=== PATIENT | male | born 1955 ===

== ENCOUNTER 2020-05-15 14:15 | Outpatient (REF) | payer MEDICARE, MEDICAID, SELFPAY ==
--- NOTE | 2020-05-15 15:15 | XR_ITS ---
EXAMINATION: 1. CHEST. 2. ABDOMEN. CLINICAL INFORMATION: M54.9 - Dorsalgia, unspecified COMPARISON: Chest x-ray 01/14/2020 TECHNIQUE: 1. Chest. 2 views 2. Abdomen. Supine frontal view FINDINGS: 1. Chest. Lungs are clear. No pulmonary vascular congestion. There is no pleural effusion. The heart size is normal. The cardiac and mediastinal contours are normal. There are calcifications of the thoracic aorta. There are multilevel degenerative changes of dorsal spine. 2. Abdomen. Small volume of bowel gas present. The abdomen is almost gasless. No dilated bowel loops evident. No radiopaque urinary calculus. There is moderate degenerative spondylosis of lower spine. IMPRESSION: 1. Chest. No acute change. 2. Abdomen. No acute abnormality.
== END 2020-05-15 14:16 | disposition home or self-care (01) ==
LOC: HO.XRAY 14:15
PROVIDERS: PCP Pediatrics; Referring Provider Pediatrics; Visit Provider Hospitalist
DX: G47.33 Obstructive sleep apnea (adult) (pediatric) (principal); M79.89 Other specified soft tissue disorders; R09.89 Other specified symptoms and signs involving the circulatory and respiratory systems; J44.9 Chronic obstructive pulmonary disease, unspecified; M54.9 Dorsalgia, unspecified
CPT/HCPCS: 71046; 74019; 99214

== ENCOUNTER → 2020-07-14 10:53 | Outpatient (BNVA) | payer MEDICARE, MEDICAID, SELFPAY | PROVIDERS: PCP Pediatrics; Visit Provider Surgery | DX: S80.11XA Contusion of right lower leg, initial encounter (principal) | CPT/HCPCS: 99202 ==

== ENCOUNTER 2020-07-14 11:47 | Emergency (ER) | payer MEDICARE, MEDICAID, SELFPAY ==
[2020-07-14 12:14] VITALS: BP 155/82; PULSE 85; RESP 18; TEMP 36.7; O2SAT 97; BMI 56.3
--- NOTE | 2020-07-14 12:44 | XR_ITS ---
EXAMINATION: XR HIP, LEFT CLINICAL INFORMATION: Pain status post fall COMPARISON: None TECHNIQUE: Two views of the left hip. Frontal view of the pelvis. FINDINGS: No fracture or dislocation. The left hip is well aligned. Joint space is mildly narrowed with subchondral sclerosis present. Mild narrowing at the right hip joint space as well. The pelvic rim is intact. Sacroiliac joints and pubic symphysis are intact. The bowel gas pattern is unremarkable. XR/XR hip LT w PEL1V IMPRESSION: No fracture or malalignment. Mild degenerative changes of the hips.
--- NOTE | 2020-07-14 12:44 | XR_ITS ---
EXAMINATION: XR ELBOW, RIGHT CLINICAL INFORMATION: Pain status post fall. COMPARISON: None TECHNIQUE: AP, lateral, and oblique views of the right elbow. FINDINGS: There is prominent soft tissue swelling overlying the medial aspect of the elbow, particularly at the dorsal aspect. There is focal cortical irregularity of the medial humeral epicondyle seen on one view only. This could represent a nondisplaced fracture versus chronic change. Alignment at the elbow is maintained. No additional evidence of fracture. No elbow joint effusion. XR/XR elbow RT min 3V IMPRESSION: Prominent soft tissue swelling overlying the dorsal medial aspect of the elbow. Focal cortical irregularity along the medial humeral epicondyle which could represent an acute nondisplaced fracture or chronic change. There is no elbow joint effusion. If clinically indicated, CT could be performed to verify.
--- NOTE | 2020-07-14 12:44 | XR_ITS ---
EXAMINATION: XR TIBIA AND FIBULA, RIGHT CLINICAL INFORMATION: Pain status post fall COMPARISON: None TECHNIQUE: AP and lateral views of the right tibia and fibula were obtained. FINDINGS: No fracture or cortical disruption. Appropriate alignment of the knee and ankle. No joint effusion at the knee. Diffuse soft tissue swelling is noted. Achilles heel spur. XR/XR tibia fibula RT 2V IMPRESSION: Diffuse soft tissue swelling. No fracture or malalignment.
[2020-07-14] MEDS: Acetaminophen 325 MG TABLET 975 MG PO (12:50)
--- NOTE | 2020-07-14 13:03 | ED.FALL ---
HPI - Fall General Chief Complaint: Fall Stated Complaint: Fall Time Seen by Provider: 07/14/20 12:44 Source: patient Mode of arrival: other ( Wheelchair) Limitations: no limitations History of Present Illness HPI Narrative: 64-year-old male below noted past medical history presenting with complaint of mechanical fall. Reports he was walking out of the hospital after his routine appointment with General surgery for a wound check of his right lower extremity things are going well however he was going up 3 steps and the 1st step he did not see and tripped on that falling forward hitting his right elbow on the hand rail and right davis area on the step. States he has some mild pain in the left hip area and pain at the right anterior tib fib/right elbow. He denies any head or neck injury. Denies any other complaints today. Related Data Home Medications Medication Instructions Recorded Confirmed allopurinol 300 mg tablet 300 mg PO DAILY 05/15/20 07/14/20 amlodipine 10 mg tablet 10 mg PO DAILY 05/15/20 07/14/20 cetirizine 10 mg tablet 10 mg PO DAILY 05/15/20 07/14/20 chlorthalidone 25 mg tablet 25 mg PO DAILY 05/15/20 07/14/20 clotrimazole 1 % topical solution OTIC (EARS) 05/15/20 07/14/20 fluticasone propionate 220 2 puff INHALATION BID 05/15/20 07/14/20 mcg/actuation HFA aerosol inhaler fluticasone propionate 50 INTRANASAL 05/15/20 07/14/20 mcg/actuation nasal spray,suspension gabapentin 300 mg capsule 300 mg PO TID 05/15/20 07/14/20 ipratropium 20 mcg-albuterol 100 1 puff INHALATION QID 05/15/20 07/14/20 mcg/actuation mist for inhalation melatonin 5 mg tablet 5 mg PO BEDTIME 05/15/20 07/14/20 metoprolol succinate 100 mg 100 mg PO DAILY 05/15/20 07/14/20 tablet,extended release 24 hr nystatin 100,000 unit/gram topical TOPICAL BID 05/15/20 07/14/20 cream roflumilast 250 mcg tablet 250 mcg PO DAILY 05/15/20 07/14/20 umeclidinium 62.5 mcg-vilanterol INHALATION 05/15/20 07/14/20 25 mcg/actuation powdr for inhalation Allergies Allergy/AdvReac Type Severity Reaction Status Date / Time cephalexin [Keflex] Allergy Mild rash Verified 05/15/20 14:48 Review of Systems Review of Systems: Yes all other systems are reviewed and are negative [facility] Past Medical History Medical History (Updated 07/14/20 @ 14:49 by Ron Mckee NP) Back pain Bibasilar crackles COPD (chronic obstructive pulmonary disease) Limb swelling Surgical History History of skin graft Family History Family History (Updated 07/14/20 @ 11:08 by LAN Peck) Sister History of breast cancer Social History Social History (Updated 05/15/20 @ 14:38 by Airam Liu MA) Alcohol intake: never Smoking Status: Former smoker Years Smoked: 7 years Smoked in Last 30 Days: No Use of substances other than those prescribed or required for medical reasons: No Advance Directives: No Advance Directives Information Provided: Yes Physical Exam Vital Signs: Vital Signs: Last Vital Signs Temp 98.1 F 07/14/20 12:14 Pulse 85 07/14/20 12:14 Resp 18 07/14/20 12:14 BP 155/82 H 07/14/20 12:14 Pulse Ox 97 07/14/20 12:14 Body Mass Index 56.3 Reviewed Const: General: cooperative and healthy appearing; No acute distress or intoxicated appearing Nutritional Appearance: average body habitus Orientation/consciousness: patient oriented x3 HENMT: Head: Yes normal to inspection Ears: hearing grossly normal bilaterally Eyes: General: appearance normal, both eyes and all related structures Visual Saez: normal visual saez by confrontation Neck: Neck: Yes normal visual inspection, No positive Brudzinski's sign, No positive Kernig's sign and No tender Thyroid: Thyroid normal Chest: Chest palpation & inspection: normal inspection of the chest Resp: Effort & Inspection: normal respiratory effort Cardio: Jugular venous distension: no JVD GI: Inspection: Yes normal to inspection Percussion: Yes normal to percussion Auscultation: normal bowel sounds : General: Yes no CVA tenderness Back/Spine/Pelvis: Back: no CVA tenderness Skin: General skin exam: no rashes or lesions noted Neuro: General: patient oriented x3 Extrem: General: Yes normal to inspection MDM - Fall MDM Narrative Medical decision making narrative: has full range of motion in the elbow without pain some soft tissue swelling where there is a soft tissue hematoma just distal to the elbow. No tender palpation over the elbow anatomy. I do not suspect a fracture at this time given Jimmie wrap will instruct if continues to bother him and get outpatient CT/further evaluation is agreeable. Stable for discharge. Medical Records Attestation: I reviewed the patient's medical records. Lab Data Attestation: I reviewed the patient's lab results. Imaging Data Tibbia/Fibula : Radiologist's impression: Carson Andujar 64 M [address] [address] XRay Report Signed Patient: Carson AndujarMR#: [id number] : 1955cct:[id number] Age/Sex: 64 / MADM Date: 07/14/20 Loc: HO.ED Attending Dr: Ordering Physician: Ron Mckee NP Date of Service: 07/14/20 Procedure(s): XR tibia fibula RT 2V Accession Number(s): [id number] cc: Ron Mckee SOFTWARE SALES REPRESENTATIVE~ EXAMINATION: XR TIBIA AND FIBULA, RIGHT CLINICAL INFORMATION: Pain status post fall COMPARISON: None TECHNIQUE: AP and lateral views of the right tibia and fibula were obtained. FINDINGS: No fracture or cortical disruption. Appropriate alignment of the knee and ankle. No joint effusion at the knee. Diffuse soft tissue swelling is noted. Achilles heel spur. XR/XR tibia fibula RT 2V IMPRESSION: Diffuse soft tissue swelling. No fracture or malalignment. Dictated By:RUBI HENDERSON MD Signed By:<Electronically signed by RUBI HENDERSON MD in OV>07/14/20 1417 DD/ 1244 TD/TT: [employer]: [place] left hip/pelvis: Radiologist's impression: [address] [address] XRay Report Signed Patient: Terrance Andujar#: [id number] : 6Acct:[id number] Age/Sex: 64 / MADM Date: 07/14/20 Loc: HO.ED Attending Dr: Ordering Physician: Ron Mckee NP Date of Service: 07/14/20 Procedure(s): XR hip LT w PEL1V Accession Number(s): [id number] cc: Ron Mckee SOFTWARE SALES REPRESENTATIVE~ EXAMINATION: XR HIP, LEFT CLINICAL INFORMATION: Pain status post fall COMPARISON: None TECHNIQUE: Two views of the left hip. Frontal view of the pelvis. FINDINGS: No fracture or dislocation. The left hip is well aligned. Joint space is mildly narrowed with subchondral sclerosis present. Mild narrowing at the right hip joint space as well. The pelvic rim is intact. Sacroiliac joints and pubic symphysis are intact. The bowel gas pattern is unremarkable. XR/XR hip LT w PEL1V IMPRESSION: No fracture or malalignment. Mild degenerative changes of the hips. Dictated By:RUBI HENDERSON MD Signed By:<Electronically signed by RUBI HENDERSON MD in OV>07/14/20 1416 DD/ 1244 TD/TT: [employer]: [place] Right Elbow : Radiologist's impression: Carson Andujar 64 M 1955 [place] [address] XRay Report Signed Patient: Carson AndujarMR#: [id number] : 6Acct:[id number] Age/Sex: 64 / MADM Date: 07/14/20 Loc: HO.ED Attending Dr: Ordering Physician: Ron Mckee NP Date of Service: 07/14/20 Procedure(s): XR elbow RT min 3V Accession Number(s): [id number] cc: Rno Mckee SOFTWARE SALES REPRESENTATIVE~ EXAMINATION: XR ELBOW, RIGHT CLINICAL INFORMATION: Pain status post fall. COMPARISON: None TECHNIQUE: AP, lateral, and oblique views of the right elbow. FINDINGS: There is prominent soft tissue swelling overlying the medial aspect of the elbow, particularly at the dorsal aspect. There is focal cortical irregularity of the medial humeral epicondyle seen on one view only. This could represent a nondisplaced fracture versus chronic change. Alignment at the elbow is maintained. No additional evidence of fracture. No elbow joint effusion. XR/XR elbow RT min 3V IMPRESSION: Prominent soft tissue swelling overlying the dorsal medial aspect of the elbow. Focal cortical irregularity along the medial humeral epicondyle which could represent an acute nondisplaced fracture or chronic change. There is no elbow joint effusion. If clinically indicated, CT could be performed to verify. Dictated By:RUBI HENDERSON MD Signed By:<Electronically signed by RUBI HENDERSON MD in OV>07/14/20 1355 DD/ 1244 TD/TT: [employer]: [place] Discharge Plan Discharge Clinical Impression: Fall, Contusion Patient Disposition: Home, Self-Care Instructions: Contusion in Adults (ED) Prescriptions: No Action fluticasone propionate 50 mcg/actuation spray,suspension intranasal RF: 0 Flovent HFA 220 mcg/actuation HFA aerosol inhaler 2 puff inhalation BID RF: 0 allopurinol 300 mg tablet 300 mg PO DAILY RF: 0 amlodipine 10 mg tablet 10 mg PO DAILY RF: 0 metoprolol succinate 100 mg tablet extended release 24 hr 100 mg PO DAILY RF: 0 cetirizine 10 mg tablet 10 mg PO DAILY RF: 0 melatonin 5 mg tablet 5 mg PO BEDTIME RF: 0 Anoro Ellipta 62.5-25 mcg/actuation blister with device inhalation RF: 0 gabapentin 300 mg capsule 300 mg PO TID RF: 0 Combivent Respimat 20-100 mcg/actuation mist 1 puff inhalation QID RF: 0 Daliresp 250 mcg tablet 250 mcg PO DAILY RF: 0 chlorthalidone 25 mg tablet 25 mg PO DAILY RF: 0 clotrimazole 1 % solution otic (ears) RF: 0 nystatin 100,000 unit/gram cream topical BID RF: 0 Referrals: Keturah Ramos MD [Primary Care Provider] - 1 week
--- NOTE | 2020-07-14 13:47 | PC.NURSE ---
pt ambulated to bathroom 40ft and back to room without any difficulty. moving all extremities, no facial grimacing noted.
== END 2020-07-14 15:19 | disposition home or self-care (01) ==
PROVIDERS: Emergency Provider Emergency Medicine; PCP Pediatrics
DX: S50.01XA Contusion of right elbow, initial encounter (principal); M79.601 Pain in right arm; M25.552 Pain in left hip; W01.0XXA Fall on same level from slipping, tripping and stumbling without subsequent striking against object, initial encounter; Y93.01 Activity, walking, marching and hiking; Y92.9 Unspecified place or not applicable; Y99.9 Unspecified external cause status; Z87.891 Personal history of nicotine dependence; Z79.899 Other long term (current) drug therapy
CPT/HCPCS: 73080; 73502; 73590; 99283

== ENCOUNTER → 2020-07-21 13:22 | Outpatient (BNVA) | payer MEDICARE, MEDICAID, SELFPAY | PROVIDERS: PCP Pediatrics; Visit Provider Surgery | DX: S80.11XA Contusion of right lower leg, initial encounter (principal); W10.9XXA Fall (on) (from) unspecified stairs and steps, initial encounter; Y93.9 Activity, unspecified; Y92.9 Unspecified place or not applicable; Y99.9 Unspecified external cause status; Z79.899 Other long term (current) drug therapy; Z87.891 Personal history of nicotine dependence | CPT/HCPCS: 99212 ==

== ENCOUNTER → 2020-08-04 15:28 | Outpatient (BNVA) | payer MEDICARE, MEDICAID, SELFPAY | PROVIDERS: PCP Pediatrics; Visit Provider Surgery | DX: S80.11XA Contusion of right lower leg, initial encounter (principal) | CPT/HCPCS: 10140; 99212 ==

== ENCOUNTER → 2020-08-12 14:17 | Outpatient (BNVA) | payer MEDICARE, MEDICAID, SELFPAY | PROVIDERS: PCP Pediatrics; Visit Provider Surgery | DX: S80.11XA Contusion of right lower leg, initial encounter (principal) | CPT/HCPCS: 99212 ==

== ENCOUNTER 2020-08-19 13:03 | Outpatient (REF) | payer MEDICARE, MEDICAID, SELFPAY | END 2020-08-19 13:04 | disposition home or self-care (01) | LOC: HO.LAB 13:03 | PROVIDERS: PCP Pediatrics; Visit Provider Surgery | DX: S80.11XA Contusion of right lower leg, initial encounter (principal) | CPT/HCPCS: 87071; 87077; 87186; 87205; 99212 ==

== ENCOUNTER → 2020-08-20 14:53 | Outpatient (BNVA) | payer MEDICARE, MEDICAID, SELFPAY | PROVIDERS: PCP Pediatrics; Visit Provider Pediatrics | DX: L76.22 Postprocedural hemorrhage of skin and subcutaneous tissue following other procedure (principal) | CPT/HCPCS: 99211 ==

== ENCOUNTER → 2020-09-01 13:32 | Outpatient (BNVA) | payer MEDICARE, MEDICAID, SELFPAY | PROVIDERS: PCP Pediatrics; Visit Provider Surgery | DX: S80.11XD Contusion of right lower leg, subsequent encounter (principal) | CPT/HCPCS: 99212 ==

== ENCOUNTER → 2020-09-15 13:59 | Outpatient (BNVA) | payer MEDICARE, MEDICAID, SELFPAY | PROVIDERS: PCP Pediatrics; Visit Provider Surgery | DX: S80.11XA Contusion of right lower leg, initial encounter (principal) | CPT/HCPCS: 99212 ==

== ENCOUNTER → 2020-09-29 14:38 | Outpatient (BNVA) | payer MEDICARE, MEDICAID, SELFPAY | PROVIDERS: PCP Pediatrics; Visit Provider Surgery | DX: S80.11XA Contusion of right lower leg, initial encounter (principal) | CPT/HCPCS: 99212 ==

== ENCOUNTER → 2020-10-13 14:46 | Outpatient (BNVA) | payer MEDICARE, MEDICAID, SELFPAY | PROVIDERS: PCP Pediatrics; Visit Provider Surgery | DX: S80.11XA Contusion of right lower leg, initial encounter (principal) | CPT/HCPCS: 99212 ==

== ENCOUNTER → 2020-10-27 13:50 | Outpatient (BNVA) | payer MEDICARE, MEDICAID, SELFPAY | PROVIDERS: PCP Pediatrics; Visit Provider Surgery | DX: S80.11XD Contusion of right lower leg, subsequent encounter (principal) | CPT/HCPCS: 99212 ==

== ENCOUNTER → 2020-11-04 08:58 | Outpatient (BNVA) | payer MEDICARE, MEDICAID, SELFPAY | PROVIDERS: PCP Pediatrics; Visit Provider Surgery | DX: S80.11XA Contusion of right lower leg, initial encounter (principal) | CPT/HCPCS: 99212 ==

== ENCOUNTER 2020-11-13 13:33 | Outpatient (RCR) | payer MEDICARE, MEDICAID, SELFPAY | END 2020-12-29 13:37 | disposition home or self-care (01) | LOC: HO.WCC 13:33 | PROVIDERS: Visit Provider Physician Assistant | DX: E11.622 Type 2 diabetes mellitus with other skin ulcer (principal); L97.919 Non-pressure chronic ulcer of unspecified part of right lower leg with unspecified severity; I87.311 Chronic venous hypertension (idiopathic) with ulcer of right lower extremity; E66.01 Morbid (severe) obesity due to excess calories; J44.9 Chronic obstructive pulmonary disease, unspecified; I10 Essential (primary) hypertension; R60.0 Localized edema; Z87.891 Personal history of nicotine dependence | CPT/HCPCS: 11042; 97597; 99212 ==

== ENCOUNTER → 2020-11-20 13:46 | Outpatient (BNVA) | payer MEDICARE, MEDICAID, SELFPAY | PROVIDERS: PCP Pediatrics; Visit Provider Hospitalist | DX: M79.89 Other specified soft tissue disorders (principal); M54.9 Dorsalgia, unspecified; R09.89 Other specified symptoms and signs involving the circulatory and respiratory systems; J41.8 Mixed simple and mucopurulent chronic bronchitis; G47.33 Obstructive sleep apnea (adult) (pediatric); Z79.899 Other long term (current) drug therapy; Z87.891 Personal history of nicotine dependence; Z99.89 Dependence on other enabling machines and devices | CPT/HCPCS: 99212 ==

== ENCOUNTER → 2021-04-20 13:50 | Outpatient (BNVA) | payer MEDICARE, MEDICAID, SELFPAY | PROVIDERS: PCP Pediatrics; Visit Provider Hospitalist | DX: M79.89 Other specified soft tissue disorders (principal); J41.8 Mixed simple and mucopurulent chronic bronchitis; G47.33 Obstructive sleep apnea (adult) (pediatric) | CPT/HCPCS: 99212 ==

== ENCOUNTER → 2021-10-15 13:49 | Outpatient (BNVA) | payer MEDICARE, MEDICAID, SELFPAY | PROVIDERS: PCP Pediatrics; Visit Provider Hospitalist | DX: G47.33 Obstructive sleep apnea (adult) (pediatric) (principal); J41.8 Mixed simple and mucopurulent chronic bronchitis; M79.89 Other specified soft tissue disorders | CPT/HCPCS: 99212 ==

== ENCOUNTER → 2022-05-19 14:08 | Outpatient (BNVA) | payer MEDICARE, MEDICAID, SELFPAY | PROVIDERS: PCP Pediatrics; Visit Provider Hospitalist | DX: G47.33 Obstructive sleep apnea (adult) (pediatric) (principal); J41.8 Mixed simple and mucopurulent chronic bronchitis; M79.89 Other specified soft tissue disorders; Z99.81 Dependence on supplemental oxygen | CPT/HCPCS: 99212 ==

== ENCOUNTER 2022-07-29 10:34 | Outpatient (REF) | payer MEDICARE, MEDICAID, SELFPAY | END 2022-07-29 10:35 | disposition home or self-care (01) | LOC: HO.MAMMO 10:34 | PROVIDERS: PCP Pediatrics; Visit Provider Pediatrics | DX: N64.4 Mastodynia (principal) | CPT/HCPCS: 76642; 77062; 77066 ==

== ENCOUNTER 2023-01-31 | Outpatient (REF) | payer MEDICARE, MEDICAID, SELFPAY ==
--- NOTE | 2023-01-31 14:50 | PFT_ITS ---
FLOWS: 1. FEV1 60% of predicted at 1.51 L. 2. FVC 63% of predicted at 3.16 L. 3. FEV1 to FVC ratio of 0.70. 4. No bronchodilator response, except in small to medium airways. LUNG VOLUMES: 1. Total lung capacity 77% of predicted at 4.94 L. 2. Residual volume 115% of predicted at 2.57 L. 3. Slow vital capacity 56% of predicted at 2.37 L. 4. Expiratory reserve volume 14% of predicted at 0.16 L. 5. Diffusion capacity is mildly decreased, diffusion capacity corrects to normal after adjustment for alveolar ventilation. IMPRESSION: Moderate to severe restrictive ventilatory defect with no bronchodilator response, except in small to medium airways. Decreased expiratory reserve volume suggests extrathoracic restriction, likely secondary to abdominal obesity. MD RICHIE Perdue/MODL / [id number]
== END 2023-01-31 00:01 | disposition home or self-care (01) ==
LOC: HO.RESP
PROVIDERS: Visit Provider Hospitalist
DX: J41.8 Mixed simple and mucopurulent chronic bronchitis (principal); G47.33 Obstructive sleep apnea (adult) (pediatric); M79.89 Other specified soft tissue disorders
CPT/HCPCS: 94060; 94727; 94729; 99212; Q3014

== ENCOUNTER 2023-08-04 13:45 | Outpatient (AMB) | payer MEDICARE, MEDICAID, SELFPAY ==
--- NOTE | 2023-08-04 14:02 | A.OFFVIS_ITS ---
Intake Vital Signs 08/04/23 14:03 Height 5 ft 7 in Weight 355 lb 6.162 oz BMI 55.7 Pulse 73 Pulse Source Pulse Oximeter Pulse Oximetry (%) 94 Oxygen Delivery Method Room Air Comment 2 Liters Oxygen(J&L) Intake Visit Reasons: sleep apnea Route Service Manager Required: No Allergies cephalexin [Keflex] Allergy (Mild, Verified 08/04/23 14:04) rash HPI HPI Comments History of Present Illness Details The patient is a 67-year-old gentleman who has morbid obesity, obs tructive sleep apnea, COPD and chronic hypoxic respiratory failure on oxygen. He has been noticing he has been using the oxygen more often. He has been getting more shortness of breath. Moderate severity. He is also getting more lower extremity swelling. Usually in the end of the day he does get significant swelling left leg more than the right. Usually in the morning there better. He has been using the Anoro and also the Flovent. He continues to have the Combivent uses as needed. He is concerned that his respiratory status getting worse. He has been eating out a lot. He also has a lot of frozen dinners. He has been consuming significant amount of salt. In the meantime he continues uses BiPAP. He recently received the new BiPAP from his [employer] company. Has a pressure of 16/12. He has been using it almost 100% of the time. The BiPAP therapy has been affecting beneficial. He continues to use it regularly. He has had multiple exacerbations. We talked about although alternative therapies including Daliresp to improve his respiratory status and decrease exacerbations. He is willing to try it and will insurance decrease the dose to 250 mcg and he can start using it every other day in the meantime. The patient has been using the BiPAP therapy the BiPAP therapy has been affecting beneficial. He is looking to get any mask. I did recommend the F30i mask. I will submitted to his [employer] company,[employer]. The patient continues with his current respiratory regimen. He has had some congestion. He is also upset about wearing mask for he feels that he can breathe with it. We try to explained to the best of the ability that we needed to having with the mask because for the safety of others and himself. We did recommend that if he did not want her a mask that we can reschedule his appointment until the cover 19 infection subsided. He did not want to that. He also describes some chest discomfort pressure sensation the middle the chest. Currently is gone. Usually happens with activity. He does have a registration coordinator and needs to follow up with them. In the meantime he should have an x-ray. 05/19/2022 the patient is here for a pulmonary follow-up visit. Since we last spoke he developed COVID-19. He recovered well. The pets COVID. Denies any residual symptoms. He continues with respiratory therapy with good effect. Denies any need for prednisone or hospitalizations. He also has oxygen that he uses with activity. He was using more often when her COVID-19. But now is back to his baseline. He also has a CPAP at nighttime. The CPAP therapy continues to be affecting beneficial. He does use it for more than 4 hours a night. Unfortunately he still waiting for the replacement [employer] [facility] to machine. Apparently there was an issue with way name with spelled on the ap plication and therefore he had to restart the process. He is using his older CPAP at this time. 01/31/2023 the patient is here for a pulm onary follow-up visit. Overall the patient has been doing well. He has had significant amount of weight loss which is helpful. He continues on the Daliresp 500mcg. He is tolerating it well. He continues on the Anoro and also the fluticasone with good effect. He did undergo pulmonary function studies which we personally reviewed. It appears that he has a moderate to severe degree of COPD. In addition to that she did get the a refurbished CPAP from [employer]. Doing better with the higher pressure, 10 cm. If he feels like he needs additional pressure support he can always call and I can adjusted further. [facility] Medical History (Updated 11/29/20 @ 22:40 by Berlin Lu MD) JAMIE treated with BiPAP Back pain COPD (chronic obstructive pulmonary disease) Bibasilar crackles Limb swelling Surgical History History of skin graft Family History Sister History of breast cancer Social History (Updated 10/15/21 @ 14:05 by HIRAM Go Alcohol intake: never Patient Tobacco Use Status: Former Tobacco user Tobacco use type: Cigarette Years Smoked: 7 years Review of Systems Const Denies night sweats ENT Denies change in voice, Denies lip swelling, Denies mouth pain, Reports nasal congestion, Reports nasal discharge and Denies tongue swelling Card Denies chest pain Resp Reports cough GI Denies abdominal pain Musc Denies no additional complaints Neuro Denies Neuro-related abnormal movements Psych Denies no additional complaints Jean/Lymph Denies easy bleeding and Denies lymphadenopathy Aller/Immun Denies lip swelling and Denies tongue swelling Physical Exam Vital Signs: Last Vital Signs Pulse 73 08/04/23 14:03 Pulse Ox 94 08/04/23 14:03 Oxygen Delivery Method Room Air 08/04/23 14:03 BMI result Body Mass Index 55.7 Const General: alert Neck Neck: Yes normal visual inspection, Yes full ROM and Yes no lymphadenopathy Chest Chest palpation & inspection: normal inspection of the chest Resp Auscultation: diminished lung sounds Cardio Rate: regular rate Rhythm: regular rhythm Heart sounds: S1 normal heart sound present and S2 normal heart sound present GI Palpation (GI): Soft to palpation and nontender Auscultation: normal bowel sounds Skin General skin exam: rashes and/or lesions noted Assessment & Plan Assessment & Plan (1) COPD (chronic obstructive pulmonary disease): Code(s): J44.9 - Chronic obstructive pulmonary disease, unspecified Qualifiers: COPD type: chronic bronchitis Chronic bronchitis type: mixed simple and mucopurulent Qualified Code(s): J41.8 - Mixed simple and mucopurulent chronic bronchitis (2) JAMIE treated with BiPAP: Code(s): G47.33 - Obstructive sleep apnea (adult) (pediatric) (3) Limb swelling: Code(s): M79.89 - Other specified soft tissue disorders Plan Continue respiratory therapy with Anoro, Flovent and Duoneb continue Daliresp 500mcg Continue oxygen supplementation APAP at nighttime with oxygen. Adjusted pressures: 10-18 F/U 12 months Coding Level of Care Code Est Pt Level 4 (94735) Diagnoses Mixed simple and mucopurulent chronic bronchitis J41.8 COPD type: chronic bronchitis Chronic bronchitis type: mixed simple and mucopurulent JAMIE treated with BiPAP G47.33 Limb swelling M79.89 Time Spent (min) 16
[2023-08-04 14:03] VITALS: PULSE 73; O2SAT 94; BMI 55.7
== END 2023-08-04 14:16 | disposition home or self-care (01) ==
PROVIDERS: PCP Pediatrics; Visit Provider Hospitalist
DX: J41.8 Mixed simple and mucopurulent chronic bronchitis (principal); G47.33 Obstructive sleep apnea (adult) (pediatric); M79.89 Other specified soft tissue disorders
CPT/HCPCS: 99214

== ENCOUNTER → 2023-08-04 13:45 | Outpatient (BNVA) | payer MEDICARE, MEDICAID, SELFPAY | PROVIDERS: PCP Pediatrics; Visit Provider Hospitalist | DX: J41.8 Mixed simple and mucopurulent chronic bronchitis (principal); G47.33 Obstructive sleep apnea (adult) (pediatric); M79.89 Other specified soft tissue disorders; Z79.899 Other long term (current) drug therapy; Z99.81 Dependence on supplemental oxygen | CPT/HCPCS: 99212 ==

== ENCOUNTER 2024-04-25 17:12 | Emergency (ER) | payer MEDICARE, MEDICAID, SELFPAY ==
[2024-04-25 17:44] VITALS: BP 125/56; PULSE 98; RESP 16; TEMP 35.9; O2SAT 94; BMI 41.5
--- NOTE | 2024-04-25 17:46 | ED.LOWEXIN ---
HPI - Extremity Injury (Lower) General Chief Complaint: Extremity Injury, Lower Stated Complaint: right lower leg inj Time Seen by Provider: 04/25/24 17:49 Source: patient Mode of arrival: ambulatory Limitations: no limitations History of Present Illness ED Provider: Asim Oneil PA-C HPI Narrative: 68 yo male with history of COPD, peripheral vascular disease, JAMIE, history of AFib on aspirin, history of chronic venous stasis and traumatic ulceration of the right skin with large hematoma back in 2020 who presents to the ER for evaluation of a new hematoma to the right lower leg that occurred yesterday when a lawn chair hit him in the lower leg. He developed pain and an approximately 3 cm dark purple bruise to the area. He also reported some mild redness surrounding the bruise. He is worried about the hematoma opening up and having prolonged healing course like he did with his last injury on his leg. Onset (ago): day(s) Type of Injury: blunt Place: home Severity: severe Severity scale (1-10): 10 Relieving factors: immobilization Exacerbating factors: weight bearing and palpation Associated symptoms: ambulatory Other symptoms: none Related Data Home Medications ?Medication ?Instructions ?Recorded ?Confirmed allopurinol 300 mg tablet 300 mg PO DAILY 05/15/20 11/20/20 amlodipine 10 mg tablet 10 mg PO DAILY 05/15/20 11/20/20 cetirizine 10 mg tablet 10 mg PO DAILY 05/15/20 11/20/20 chlorthalidone 25 mg tablet 25 mg PO DAILY 05/15/20 11/20/20 fluticasone propionate 220 2 puff inhalation BID 05/15/20 11/20/20 mcg/actuation HFA aerosol inhaler fluticasone propionate 50 intranasal 05/15/20 11/20/20 mcg/actuation nasal spray,suspension gabapentin 300 mg capsule 300 mg PO TID 05/15/20 11/20/20 ipratropium 20 mcg-albuterol 100 1 puff inhalation QID 05/15/20 11/20/20 mcg/actuation mist for inhalation melatonin 5 mg tablet 5 mg PO BEDTIME 05/15/20 11/20/20 metoprolol succinate 100 mg 100 mg PO DAILY 05/15/20 11/20/20 tablet,extended release 24 hr nystatin 100,000 unit/gram topical topical BID 05/15/20 11/20/20 cream CPAP (CPAP Machine/Device) 01/31/23 Oxygen Home Use 01/31/23 Previous Rx's ?Medication ?Instructions ?Recorded fluticasone furoate 100 1 inh inhalation DAILY 30 days #30 11/09/23 mcg/actuation blister powder for ea inhalation (Arnuity Ellipta) Anoro Ellipta 62.5 mcg-25 1 ea PO DAILY #60 ea 12/04/23 mcg/actuation powder for inhalation (umeclidinium-vilanterol) roflumilast 500 mcg tablet 500 mcg PO DAILY 30 days #30 tabs 01/30/24 (Daliresp) doxycycline hyclate 100 mg tablet 100 mg PO BID #14 tabs 04/25/24 Allergies Allergy/AdvReac Type Severity Reaction Status Date / Time cephalexin [Keflex] Allergy Mild rash Verified 04/25/24 17:48 Review of Systems Review of Systems: Yes all other systems are reviewed and are negative [facility] Past Medical History Medical History (Updated 11/29/20 @ 22:40 by Berlin Lu MD) JAMIE treated with BiPAP Back pain COPD (chronic obstructive pulmonary disease) Bibasilar crackles Limb swelling Surgical History (Updated 04/25/24 @ 17:48 by MIGUEL Cabrera) History of skin graft Family History Family History Sister History of breast cancer Social History Social History (Updated 10/15/21 @ 14:05 by LAN Go) Alcohol intake: never Patient Tobacco Use Status: Former Tobacco user Tobacco use type: Cigarette Years Smoked: 7 years Advance Directives: Yes Advance Directives Information Provided: No Advance Directives on File: No Do you have a plan to hurt others: No Plan Physical Exam Vital Signs: Vital Signs: Last Vital Signs Temp 96.6 F L 04/25/24 17:44 Pulse 98 04/25/24 17:44 Resp 16 04/25/24 17:44 BP 125/56 L 04/25/24 17:44 Pulse Ox 94 04/25/24 17:44 O2 Del Method Room Air 04/25/24 17:44 BMI result Body Mass Index 41.5 Appearance: Alert. Oriented X3. No acute distress. HEENT: normal inspection CVS: Normal heart rate and rhythm. Pulses normal. Respiratory: No respiratory distress. Skin: Skin warm and dry. Normal skin color. Normal skin turgor. No rashes. Extremities: Right lower leg with an approximately 3 cm around tender ecchymotic area consistent with a hematoma, moderate surrounding erythema and warmth on the anterior portion of the leg. No calf tenderness. Various scars in the bilateral lower legs. Skin graft scar seen on the left lower leg Neuro: Oriented X 3. No motor deficit. No sensory deficit. Medical Decision Making Medical Decision Making MDM Narrative: 68 yo male with history of COPD, peripheral vascular disease, JAMIE, history of AFib on aspirin, history of chronic venous stasis and traumatic ulceration of the right skin with large hematoma back in 2020 who presents to the ER for evaluation of a new hematoma to the right lower leg that occurred yesterday when a lawn chair hit him in the lower leg. There is some mild surrounding erythema and warmth, likely localized reaction. Given his significant history of poor wound healing and complicated events of his lower extremity wounds, will prescribe empiric doxycycline. Leg wrapped in Jimmie wrap for compression. Advised to elevate and stay off of his leg as much as possible. Encouraged follow-up with the [facility] earlier rather than later. Also encouraged primary care follow-up. Stable for discharge home. Return precautions were discussed. Differential Diagnosis Differential Diagnoses: The differential diagnosis associated with the presentation includes Hematoma, cellulitis, abscess External Record Review External record reviewed: Office record, Outpatient record, Prior outpatient labs and Prior outpatient radiology Tests considered The following testing was considered but not selected: Considered x-ray lower leg however low clinical suspicion for acute fracture Prescription Management I considered prescription management with: Pain Medication and Antibiotic Chronic Conditions Patient?s care impacted by: Other (Peripheral vascular disease) Discharge Plan Discharge Clinical Impression: Hematoma of right lower leg Patient Disposition: Home, Self-Care Instructions: Hematoma (ED) Additional Instructions: wear the provided JIMMIE wrap for compression elevate you leg whenever possible Take the prescribed antibiotics as directed, complete the entire course and do not miss any doses Follow-up with the [facility]. If you develop new or worsening symptoms call 911 or come back to the ER for further evaluation. Prescriptions: New doxycycline hyclate 100 mg tablet 100 mg PO BID Qty: 14 0RF No Action Arnuity Ellipta 100 mcg/actuation blister with device 1 inh inhalation DAILY 30 Days Qty: 30 11RF Anoro Ellipta 62.5-25 mcg/actuation blister with device 1 ea PO DAILY Qty: 60 11RF roflumilast [Daliresp] 500 mcg tablet 500 mcg PO DAILY 30 Days Qty: 30 11RF fluticasone propionate 50 mcg/actuation spray,suspension intranasal Flovent HFA 220 mcg/actuation HFA aerosol inhaler 2 puff inhalation BID allopurinol 300 mg tablet 300 mg PO DAILY amlodipine 10 mg tablet 10 mg PO DAILY metoprolol succinate 100 mg tablet extended release 24 hr 100 mg PO DAILY cetirizine 10 mg tablet 10 mg PO DAILY melatonin 5 mg tablet 5 mg PO BEDTIME gabapentin 300 mg capsule 300 mg PO TID Combivent Respimat 20-100 mcg/actuation mist 1 puff inhalation QID chlorthalidone 25 mg tablet 25 mg PO DAILY nystatin 100,000 unit/gram cream topical BID (DME) CPAP Machine/Device Device See Rx Instructions .ROUTE Rx Instructions: As directed (DME) Oxygen Home Use Kit See Rx Instructions .ROUTE Rx Instructions: As directed Referrals: [facility] [Provider Group] Keturah Ramos MD [Primary Care Provider] - Discharge Date/Time: 04/25/24 17:59 Print Language: Gambian
== END 2024-04-25 17:59 | disposition home or self-care (01) ==
LOC: HO.ED 17:55
PROVIDERS: Emergency Provider Emergency Medicine; PCP Pediatrics
DX: S80.11XA Contusion of right lower leg, initial encounter (principal); W22.8XXA Striking against or struck by other objects, initial encounter; Y93.89 Activity, other specified; Y92.9 Unspecified place or not applicable; Y99.9 Unspecified external cause status
CPT/HCPCS: 99281; 99283

== ENCOUNTER 2024-05-01 11:31 | Outpatient (REF) | payer MEDICARE, MEDICAID, SELFPAY ==
[2024-05-01 15:08] LABS: MANUAL DIFF FLAG NO
[2024-05-01 15:13] LABS: Basophils Absolute Auto 0.1 X10*3/uL (0.0-0.2); Basophils Percent Auto 0.6 % (0-2); Eosinophils Absolute Auto 0.5 X10*3/uL (0.0-0.4); Eosinophils Percent Auto 5.7 % (0-4); Hematocrit 47.9 % (42.0-52.0); Hemoglobin 15.5 g/dl (14.0-18.0); Imm Gran Abs Auto 0.04 X10*3/uL (0.00-0.03); Imm Gran Pct Auto 0.5 % (0.0-0.4); Lymphocytes Absolute Auto 0.9 X10*3/uL (1.2-4.9); Lymphocytes Percent Auto 11.1 % (20-40); Mean Corpuscular HGB Conc 32.4 g/dl (31.0-36.0); Mean Corpuscular Hemoglobin 27.8 pg (27.0-33.0); Monocytes Absolute Auto 0.7 X10*3/uL (0.1-1.2); Monocytes Percent Auto 7.8 % (2-11); Neutrophils Absolute Auto 6.3 x10*3/uL (2.0-8.3); Neutrophils Percent Auto 74.3 % (45-73); Platelet Count 202 X10*3/uL (160-400); Red Blood Count 5.57 X10*6/uL (4.60-5.80); Red Cell Distribution Width 15.2 % (11.0-16.0); White Blood Count 8.5 X10*3/uL (4.8-10.8)
[2024-05-01 16:23] LABS: Alanine Aminotransferase 17 U/L (0-40); Alkaline Phosphatase 76 U/L (39-117); Anion Gap 15 (12-20); Aspartate Amino Transferase 24 U/L (5-37); Bilirubin Direct 0.3 mg/dL (0.0-0.5); Bilirubin Total 0.6 mg/dL (0.0-1.0); Blood Urea Nitrogen 15 mg/dL (9-16); Calcium 10.2 mg/dL (8.4-10.2); Carbon Dioxide 33 mmol/L (22-29); Chloride 99 mmol/L (96-108); Cholesterol 160 mg/dL (<200); Estimated Glomerular Filt Rate > 60; Glucose Fasting 105 mg/dL (60-99); HDL Cholesterol 40 mg/dL (>40); LDL Cholesterol Calculated 99 mg/dL (<100); Potassium 3.1 mmol/L (3.3-5.1); Sodium 144 mmol/L (135-145); Total Protein 7.5 g/dL (6.5-8.0); Triglycerides 106 mg/dL (<150)
[2024-05-01 16:28] LABS: Total Protein Urine Random 11 mg/dL (<12)
[2024-05-01 16:35] LABS: Prostate Specific Antigen Scr 1.12 ng/mL (<0.05-4.0)
[2024-05-01 17:21] LABS: TSH reflex Free T4 1.39 uIU/mL (0.32-4.0)
== END 2024-05-01 11:32 | disposition home or self-care (01) ==
LOC: HO.CHCLDS 11:31
PROVIDERS: Visit Provider Pediatrics
DX: R73.01 Impaired fasting glucose (principal); R35.89 Other polyuria; E66.2 Morbid (severe) obesity with alveolar hypoventilation; R73.03 Prediabetes; Z12.5 Encounter for screening for malignant neoplasm of prostate
CPT/HCPCS: 36415; 80048; 80061; 80076; 84153; 84156; 84443; 85025

== ENCOUNTER 2024-05-13 13:58 | Outpatient (REF) | payer MEDICARE, MEDICAID, SELFPAY ==
[2024-05-13 18:33] LABS: Potassium 3.6 mmol/L (3.3-5.1)
== END 2024-05-13 13:59 | disposition home or self-care (01) ==
LOC: HO.CHCLDS 13:58
PROVIDERS: Visit Provider Pediatrics
DX: E87.6 Hypokalemia (principal)
CPT/HCPCS: 36415; 84132

== ENCOUNTER 2024-05-23 13:56 | Outpatient (AMB) | payer MEDICARE, MEDICAID, SELFPAY ==
--- NOTE | 2024-05-23 14:06 | A.OFFVIS_ITS ---
Vital Signs 05/23/24 14:07 Height 5 ft 7 in Weight 321 lb BMI 50.3 Pulse 69 Pulse Source Pulse Oximeter Pulse Oximetry (%) 95 Oxygen Delivery Method Room Air Intake Visit Reasons: sleep apnea Nursing Home Aide Required: No Allergies cephalexin [Keflex] Allergy (Mild, Verified 05/23/24 14:07) rash HPI Comments Details: The patient is a 68-year-old gentleman who has morbid obesity, obstructive sleep apnea, COPD and chronic hypoxic respiratory failure on oxygen. He has been noticing he has been using the oxygen more often. He has been getting more shortness of breath. Moderate severity. He is also getting more lower extremity swelling. Usually in the end of the day he does get significant swelling left leg more than the right. Usually in the morning there better. He has been using the Anoro and also the Flovent. He continues to have the Combivent uses as needed. He is concerned that his respiratory status getting worse. He has been eating out a lot. He also has a lot of frozen dinners. He has been consuming significant amount of salt. In the meantime he continues uses BiPAP. He recently received the new BiPAP from his [employer] company. Has a pressure of 16/12. He has been using it almost 100% of the time. The BiPAP therapy has been affecting beneficial. He continues to use it regularly. He has had multiple exacerbations. We talked about although alternative therapies including Daliresp to improve his respiratory status and decrease exacerbations. He is willing to try it and will insurance decrease the dose to 250 mcg and he can start using it every other day in the meantime. The patient has been using the BiPAP therapy the BiPAP therapy has been affecting beneficial. He is looking to get any mask. I did recommend the F30i mask. I will submitted to his [employer] company,[employer]. The patient continues with his current respiratory regimen. He has had some congestion. He is also upset about wearing mask for he feels that he can breathe with it. We try to explained to the best of the ability that we needed to having with the mask because for the safety of others and himself. We did recommend that if he did not want her a mask that we can reschedule his appointment until the cover 19 infection subsided. He did not want to that. He also describes some chest discomfort pressure sensation the middle the chest. Currently is gone. Usually happens with activity. He does have a phys assistant and needs to follow up with them. In the meantime he should have an x-ray. 05/19/2022 the patient is here for a pulmonary follow-up visit. Since we last spoke he developed COVID-19. He recovered well. The pets COVID. Denies any residual symptoms. He continues with respiratory therapy with good effect. Denies any need for prednisone or hospitalizations. He also has oxygen that he uses with activity. He was using more often when her COVID-19. But now is back to his baseline. He also has a CPAP at nighttime. The CPAP therapy continues to be affecting beneficial. He does use it for more than 4 hours a night. Unfortunately he still waiting for the replacement [employer] to machine. Apparently there was an issue with way name with spelled on the ap plication and therefore he had to restart the process. He is using his older CPAP at this time. 01/31/2023 the patient is here for a pulmonary follow-up visit. Overall the patient has been doing well. He has had significant amount of weight loss which is helpful. He continues on the Daliresp 500mcg. He is tolerating it well. He continues on the Anoro and also the fluticasone with good effect. He did undergo pulmonary function studies which we personally reviewed. It appears that he has a moderate to severe degree of COPD. In addition to that she did get the a refurbished CPAP from [employer]. Doing better with the higher pressure, 10 cm. If he feels like he needs additional pressure support he can always call and I can adjusted further. 05/23/2024 the patient is here for a pulmonary follow-up visit. Overall he is doing well. His breathing is improved. He continues with his respiratory medicines with good effect. He has had significant amount of weight loss which is also helping his overall health. The patient did get his new CPAP. The CPAP therapy has been affecting beneficial. His AHI is down 2.5. His average pressure is around 10. Current APAP setting is 10-18 therefore will switch over to 10-16. He does have a comfortable mask. Her continue to use it at this time. He is having issues with weight loss having significant skin irritation in infections during the pannus. He is thinking about having surgery because of the recurrent and frequent infections. [facility] Medical History (Updated 11/29/20 @ 22:40 by Berlin Lu MD) JAMIE treated with BiPAP Back pain COPD (chronic obstructive pulmonary disease) Bibasilar crackles Limb swelling Surgical History (Updated 04/25/24 @ 17:48 by MIGUEL Cabrera) History of skin graft Family History (Reviewed 11/04/20 @ 09:18 by Maya Matos [facility]) Sister History of breast cancer Social History (Updated 10/15/21 @ 14:05 by Airam Liu [facility]) Alcohol intake: never Patient Tobacco Use Status: Former Tobacco user Tobacco use type: Cigarette Years Smoked: 7 years Review of Systems Const Denies night sweats and Reports weight loss ENT Denies change in voice, Denies lip swelling, Denies mouth pain, Reports nasal congestion, Reports nasal discharge and Denies tongue swelling Card Denies chest pain Resp Reports cough GI Denies abdominal pain Musc Denies no additional complaints Skin/Breast Reports skin swelling and Reports sores Neuro Denies Neuro-related abnormal movements Psych Denies no additional complaints Jean/Lymph Denies easy bleeding and Denies lymphadenopathy Aller/Immun Denies lip swelling and Denies tongue swelling Physical Exam Vital Signs: Last Vital Signs Pulse 69 05/23/24 14:07 Pulse Ox 95 05/23/24 14:07 Oxygen Delivery Method Room Air 05/23/24 14:07 BMI result Body Mass Index 50.3 Const General: alert Neck Neck: Yes normal visual inspection, Yes full ROM and Yes no lymphadenopathy Chest Chest palpation & inspection: normal inspection of the chest Resp Auscultation: diminished lung sounds Cardio Rate: regular rate Rhythm: regular rhythm Heart sounds: S1 normal heart sound present and S2 normal heart sound present GI Palpation (GI): Soft to palpation and nontender Auscultation: normal bowel sounds Skin General skin exam: rashes and/or lesions noted Assessment & Plan Assessment & Plan (1) COPD (chronic obstructive pulmonary disease): Code(s): J44.9 - Chronic obstructive pulmonary disease, unspecified Category: Medical Qualifiers: COPD type: chronic bronchitis Chronic bronchitis type: mixed simple and mucopurulent Qualified Code(s): J41.8 - Mixed simple and mucopurulent chronic bronchitis (2) JAMIE treated with BiPAP: Code(s): G47.33 - Obstructive sleep apnea (adult) (pediatric) Category: Medical (3) Limb swelling: Code(s): M79.89 - Other specified soft tissue disorders Category: Medical Plan Continue respiratory therapy with Anoro, Arnuity and Duoneb continue Daliresp 500mcg discontinued oxygen supplementation APAP at nighttime with oxygen. Adjusted pressures: 10-18 F/U 6-12 months Coding Level of Care Code Est Pt Level 4 (06080) Diagnoses Mixed simple and mucopurulent chronic bronchitis J41.8 COPD type: chronic bronchitis Chronic bronchitis type: mixed simple and mucopurulent JAMIE treated with BiPAP G47.33 Limb swelling M79.89 Time Spent (min) 17
[2024-05-23 14:07] VITALS: PULSE 69; O2SAT 95; BMI 50.3
== END 2024-05-23 14:26 | disposition home or self-care (01) ==
PROVIDERS: PCP Pediatrics; Visit Provider Hospitalist
DX: J41.8 Mixed simple and mucopurulent chronic bronchitis (principal); G47.33 Obstructive sleep apnea (adult) (pediatric); M79.89 Other specified soft tissue disorders
CPT/HCPCS: 99214

== ENCOUNTER → 2024-05-23 13:56 | Outpatient (BNVA) | payer MEDICARE, MEDICAID, SELFPAY | PROVIDERS: PCP Pediatrics; Visit Provider Hospitalist | DX: J41.8 Mixed simple and mucopurulent chronic bronchitis (principal); G47.33 Obstructive sleep apnea (adult) (pediatric); M79.89 Other specified soft tissue disorders; Z99.81 Dependence on supplemental oxygen; Z99.89 Dependence on other enabling machines and devices | CPT/HCPCS: 99212 ==

== ENCOUNTER 2024-11-21 13:36 | Outpatient (AMB) | payer MEDICARE, MEDICAID, SELFPAY ==
[2024-11-21 13:37] VITALS: BP 130/60; PULSE 66; O2SAT 94; BMI 52.8
--- NOTE | 2024-11-21 13:37 | A.OFFVIS_ITS ---
Vital Signs 11/21/24 13:37 Height 5 ft 7 in Weight 337 lb 4.916 oz BMI 52.8 BP 130/60 Blood Pressure Location Lt brachial Position Sitting Pulse 66 Pulse Source Pulse Oximeter Pulse Oximetry (%) 94 Oxygen Delivery Method Room Air Intake Visit Reasons: sleep apnea Allergies cephalexin [Keflex] Allergy (Mild, Verified 11/21/24 13:42) rash HPI Comments Details: The patient is a 69-year-old gentleman who has morbid obesity, obstructive sleep apnea, COPD and chronic hypoxic respiratory failure on oxygen. He has been not icing he has been using the oxygen more often. He has been getting more shortness of breath. Moderate severity. He is also getting more lower extremity swelling. Usually in the end of the day he does get significant swelling left leg more than the right. Usually in the morning there better. He has been using the Anoro and also the Flovent. He continues to have the Combivent uses as needed. He is concerned that his respiratory status getting worse. He has been eating out a lot. He also has a lot of frozen dinners. He has been consuming significant amount of salt. In the meantime he continues uses BiPAP. He recently received the new BiPAP from his [employer] company. Has a pressure of 16/12. He has been using it almost 100% of the time. The BiPAP therapy has been affecting beneficial. He continues to use it regularly. He has had multiple exacerbations. We talked about although alternative therapies including Daliresp to improve his respiratory status and decrease exacerbations. He is willing to try it and will insurance decrease the dose to 250 mcg and he can start using it every other day in the meantime. The patient has been using the BiPAP therapy the BiPAP therapy has been affecting beneficial. He is looking to get any mask. I did recommend the F30i mask. I will submitted to his [employer] company,[employer]. The patient continues with his current respiratory regimen. He has had some congestion. He is also upset about wearing mask for he feels that he can breathe with it. We try to explained to the best of the ability that we needed to having with the mask because for the safety of others and himself. We did recommend that if he did not want her a mask that we can reschedule his appointment until the cover 19 infection subsided. He did not want to that. He also describes some chest discomfort pressure sensation the middle the chest. Currently is gone. Usually happens with activity. He does have a supervisor/port director and needs to follow up with them. In the meantime he should have an x-ray. 05/19/2022 the patient is here for a pulmonary follow-up visit. Since we last spoke he developed COVID-19. He recovered well. The pets COVID. Denies any residual symptoms. He continues with respiratory therapy with good effect. Denies any need for prednisone or hospitalizations. He also has oxygen that he uses with activity. He was using more often when her COVID-19. But now is back to his baseline. He also has a CPAP at nighttime. The CPAP therapy continues to be affecting beneficial. He does use it for more than 4 hours a night. Unfortunately he still waiting for the replacement [employer] to machine. Apparently there was an issue with way name with spelled on the application and therefore he had to restart the process. He is using his older CPAP at this time. 01/31/2023 the patient is here for a pulmonary follow-up visit. Overall the patient has been doing well. He has had significant amount of weight loss which is helpful. He continues on the Daliresp 500mcg. He is tolerating it well. He continues on the Anoro and also the fluticasone with good effect. He did undergo pulmonary function studies which we personally reviewed. It appears that he has a moderate to severe degree of COPD. In addition to that she did get the a refurbished CPAP from [employer]. Doing better with the higher pressure, 10 cm. If he feels like he needs additional pressure support he can always call and I can adjusted further. 05/23/2024 the patient is here for a pulmonary follow-up visit. Overall he is doing well. His breathing is improved. He continues with his respiratory medicines with good effect. He has had significant amount of weight loss which is also helping his overall health. The patient did get his new CPAP. The CPAP therapy has been affecting beneficial. His AHI is down 2.5. His average pressure is around 10. Current APAP setting is 10-18 therefore will switch over to 10-16. He does have a comfortable mask. Her continue to use it at this time. He is having issues with weight loss having significant skin irritation in infections during the pannus. He is thinking about having surgery because of the recurrent and frequent infections. 11/21/2024 the patient is here for a pulmonary follow-up visit. He continues to do well continues uses respiratory therapy as prescribed. Denies any exacerbations recently. Has not need any prednisone which is reassuring. He continues uses CPAP every night. CPAP therapy continues to be affecting beneficial. I did download the data and appears that his AHI is even better closer to 1 episode an hour. He does have a face mask that is fullface mask that he tolerates well without any significant air leakage. He will continue with that CPAP at this time. Continue with respiratory therapy. He may be starting a GLP 1 inhibitor for his sleep apnea and obesity specially since his causing comorbidities. He is open to start that soon so he can have some significant weight loss. In the meantime he continue with the Daliresp. [facility] Medical History (Updated 11/29/20 @ 22:40 by Berlin Lu MD) JAMIE treated with BiPAP Back pain COPD (chronic obstructive pulmonary disease) Bibasilar crackles Limb swelling Surgical History (Updated 04/25/24 @ 17:48 by MIGUEL Cabrera) History of skin graft Family History Sister History of breast cancer Social History Alcohol intake: never Patient Tobacco Use Status: Former Tobacco user Tobacco use type: Cigarette Years Smoked: 7 years Review of Systems Const Denies chills, Denies fatigue, Denies fever(s), Denies weight gain and Denies weight loss ENT Denies dizziness, Denies lip swelling and Denies tongue swelling Card Denies chest pain, Denies leg edema, Denies lightheadedness, Denies palpitations, Denies dyspnea on exertion, Denies orthopnea and Denies other Resp Denies cough and Denies dyspnea on exertion GI Denies hematochezia and Denies change in stool character Musc Denies abnormal gait, Denies muscle weakness, Denies numbness, Denies radiating pain into limb and Denies tingling Skin/Breast Reports skin swelling and Reports sores Neuro Denies abnormal gait, Denies dizziness, Denies numbness and Denies tingling Psych Denies no additional complaints Endo Denies fatigue and Denies palpitations Jean/Lymph Denies easy bleeding and Denies lymphadenopathy Aller/Immun Denies lip swelling and Denies tongue swelling Physical Exam Vital Signs: Last Vital Signs Pulse 66 11/21/24 13:37 BP 130/60 11/21/24 13:37 Pulse Ox 94 11/21/24 13:37 Oxygen Delivery Method Room Air 11/21/24 13:37 BMI result Body Mass Index 52.8 Const General: alert Neck Neck: Yes normal visual inspection, Yes full ROM and Yes no lymphadenopathy Chest Chest palpation & inspection: normal inspection of the chest Resp Auscultation: diminished lung sounds Cardio Rate: regular rate Rhythm: regular rhythm Heart sounds: S1 normal heart sound present and S2 normal heart sound present GI Palpation (GI): Soft to palpation and nontender Auscultation: normal bowel sounds Skin General skin exam: rashes and/or lesions noted Assessment & Plan Assessment & Plan (1) COPD (chronic obstructive pulmonary disease): Code(s): J44.9 - Chronic obstructive pulmonary disease, unspecified Category: Medical Qualifiers: COPD type: chronic bronchitis Chronic bronchitis type: mixed simple and mucopurulent Qualified Code(s): J41.8 - Mixed simple and mucopurulent chronic bronchitis (2) JAMIE treated with BiPAP: Code(s): G47.33 - Obstructive sleep apnea (adult) (pediatric) Category: Medical (3) Limb swelling: Code(s): M79.89 - Other specified soft tissue disorders Category: Medical Plan Continue respiratory therapy with Anoro, Arnuity and Duoneb continue Daliresp 500mcg APAP at nighttime with oxygen. pressures: 10-18, F20 F/U 6-12 months Coding Level of Care Code Est Pt Level 4 (25845) Complex EM visit Add On G2211 Diagnoses Mixed simple and mucopurulent chronic bronchitis J41.8 COPD type: chronic bronchitis Chronic bronchitis type: mixed simple and mucopurulent JAMIE treated with BiPAP G47.33 Limb swelling M79.89 Time Spent (min) 16
--- OUTSIDE RECORDS SUMMARY | 2024-11-21 16:39 | XMS_ITS | Encounter Summary ---
Author Organization [employer] Address [address] 7[address] [place] [address] Care Team Providers Care Sectionizer Name Role Phone Keturah Ramos MD Primary Care Provider [phone] Reason for Visit * Reason Comments Med Change Request Encounter Details Date Type Department Care Team ([facility] st Contact Info) Description 08/26/2023 Refill [facility] MED & PEDS [address] [place], [place] [id number] Melanie Mchugh MD [address] [place] [address] Impaired glucose tolerance in obese Social History Tobacco Use Types Packs/Day Years Used Date Smoking Tobacco: Never Passive Smoke Exposure: Never Smokeless Tobacco: Never Depression Answer Date Recorded Patient Health Questionnaire-9 Score 0 01/05/2023 Housing Stability Answer Date Recorded What is your housing situation today? I have keeleyashley he 06/03/[address] you li ve. Do you have problems with any of the following? None of the above 06/03/2023 Food Insecurity Answer Date Recorded Within the past 12 months, y ou worried that your food would run out before you got money to buy more: Never True 06/03/2023 Within the past 12 months,th e food you bought just didn't last and you didn't have enough money to get more: Never True Transportation Answer Date Recorded In the past 12 months, has l ack of transportation kept you from medical appts, meetings, work or from getting things needed for daily living? No 06/03/2023 Utilities Answer Date Recorded In the past 12 months, has t he electric, gas, oil or water company threatened to shut off services in your home? No 06/03/2023 Depression Answer Date Recorded Patient Health Questionnaire-2 Score 0 01/05/2023 Sex and Gender Information Value Date Recorded Sex Assigned at Male 06/06/2022 10:17 AM EDT Legal Sex Male 10:17 AM EDT Gender Identity Male 06/06/2022 10:17 AM EDT Sexual Orientation Straight 06/06/2022 10 :17 AM EDT documented as of this encounter Plan of Treatment Upcoming Encounters Date Type Department Care Team (Late st Contact Info) Description 01/07/2025 10:30 AM EDT Office Visit [facility] MED & PEDS [address] [place] [address] Keturah Ramos MD [address] [place] [address] documented as of this encounter Visit Diagnoses Diagnosis Impaired glucose tolerance in obese Other abnormal glucose documented in this encounter Additional Health Concerns Assessment Noted Time PHQ-9 Depression Total Score: 0 01/06/20 23 10:54 AM EDT documented as of this encounter Care Teams Sectionizer Relationship Specialty Start Date End Date Keturah Ramos MD [address] [place] [address] PCP - General Family Medicine 08/07/18 documented as of this encounter
--- OUTSIDE RECORDS SUMMARY | 2024-11-21 16:39 | XMS_ITS | Encounter Summary ---
Author Organization [employer] Address [address] [place] [address] 7 [place] [address] Care Team Providers Care Seconds Handler Name Role Phone Keturah Ramos MD Primary Care Provider [phone] Reason for Visit * Reason Comments Med Refill Encounter Details Date Type Department Care Team ([facility] Contact Info) Description 05/02/2023 Refill [facility] MED & PEDS [address] [place] [address] Keturah Ramos MD [address] [place] [address] Social History Tobacco Use Types Packs/Day Years Used Date Smoking Tobacco: Never Passive Smoke Exposure: Never Smokeless Tobacco: Never Depression Answer Date Recorded Patient Health Questionnaire-9 Score 0 01/05/2023 Depression Answer Date Recorded Patient Health Questionnaire-2 Score 0 01/05/2023 Sex and Gender Information Value Date Recorded Sex Assigned at Male 06/06/2022 10:17 AM EDT Legal Sex Male 10:17 AM EDT Gender Identity Male 06/06/2022 10:17 AM EDT Sexual Orientation Straight 06/06/2022 10 :17 AM EDT documented as of this encounter Miscellaneous Notes * Telephone Encounter - Yara Palacio - 05/02/2023 10:57 AM EDT Tc from patient requesting a med refill for medication nystatin (Mycostatin) cream. Dr. Ramos documented in this encounter Plan of Treatment Upcoming Encounters Date Type Department Care Team (Late Contact Info) Description 01/07/2025 10:30 AM EDT Office Visit [facility] CH[facility] MED & PEDS [address] [place] [address] Keturah Ramos MD [address] [place] [address] documented as of this encounter Visit Diagnoses Not on filedocumented in this encounter Additional Health Concerns Assessment Noted Time PHQ-9 Depression Total Score: 0 01/06/20 10:54 AM EDT documented as of this encounter Care Teams Seconds Handler Relationship Specialty Start Date End Date Keturah Ramos MD [address] [place] [address] PCP - General Family Medicine 08/07/18 documented as of this encounter
--- OUTSIDE RECORDS SUMMARY | 2024-11-21 16:39 | XMS_ITS | Encounter Summary ---
Author Organization [employer] Address [address] 7[address] [place] [address] Care Team Providers Care Autocad Detailer Name Role Phone Keturah Ramos MD Primary Care Provider [phone] Reason for Visit * Reason Comments Med Refill Encounter Details Date Type Department Care Team ([facility] Contact Info) Description 01/29/2024 Refill [facility] MED & PEDS [address] [place] [address] Keturah Ramos MD [address] [place] [address] Social History Tobacco Use Types Packs/Day Years Used Date Smoking Tobacco: Never Passive Smoke Exposure: Never Smokeless Tobacco: Never Depression Answer Date Recorded Patient Health Questionnaire-9 Score 0 01/05/2023 Housing Stability Answer Date Recorded What is your housing situation today? I have keeley he 06/03/[address] you [...] Description 01/07/2025 10:30 AM EDT Office Visit [facility] MED & PEDS [address] [place] [address] Keturah Ramos MD [address] [place] [address] documented as of this encounter Visit Diagnoses Not on filedocumented in this encounter Additional Health Concerns Assessment Noted Time PHQ-9 Depression Total Score: 0 01/06/20 23 10:54 AM EDT documented as of this encounter Care Teams Autocad Detailer Relationship Specialty Start Date End Date Keturah Ramos MD [address] [place] [address] PCP - General Family Medicine 08/07/18 documented as of this encounter
--- OUTSIDE RECORDS SUMMARY | 2024-11-21 16:39 | XMS_ITS | Encounter Summary ---
Author Organization [employer] Address [address] [place] [address] Care Team Providers Care Community Pharmacist Name Role Phone Keturah Ramos MD Primary Care Provider [phone] Reason for Visit * Reason Onset Date Comments Prior Authorization 11/18/2024 Encounter Details Date Type Department Care Team ([facility] Contact Info) Description 11/18/2024 Telephone [facility] MED & PEDS [address] [place] [address] Keturah Ramos MD [address] [place] [address] Prior Authorization Social History Tobacco Use Types Packs/Day Years Used Date Smoking Tobacco: Never Passive Smoke Exposure: Never Smokeless Tobacco: Never Depression Answer Date Recorded Patient Health Questionnaire-9 Score 4 11/06/2024 Patient Health Questionnaire-9 Score 4 11/06/2024 Last PHQ-9: Questionnaire Data Not on file 0 11/06/2024 Housing Stability Answer Date Recorded What is your housing situation today? I have keeley he 11/06/[address] you li ve. Do you have problems with any of the following? None of the above 11/06/2024 Food Insecurity Answer Date Recorded Within the past 12 months, y ou worried that your food would run out before you got money to buy more: Sometimes True 2024 Within the past 12 months,th e food you bought just didn't last and you didn't have enough money to get more: Never True 11/06/2024 Transportation Answer Date Recorded In the past 12 months, has l ack of transportation kept you from medical appts, meetings, work or from getting things needed for daily living? No 11/06/2024 Utilities Answer Date Recorded In the past 12 months, has t he electric, gas, oil or water company threatened to shut off services in your home? No 11/06/2024 Depression Answer Date Recorded Patient Health Questionnaire-2 Score 1 11/06/2024 Internet Access Answer Date Recorded Internet Access Q1 Yes 11/06/2024 Internet Access Q2 Not on file 11/06/2024 Sex and Gender Information Value Date Recorded Sex Assigned at Male 06/06/2022 10:17 AM EDT Legal Sex Male 10:17 AM EDT Gender Identity Male 06/06/2022 10:17 AM EDT Sexual Orientation Straight 06/06/2022 10 :17 AM EDT documented as of this encounter Miscellaneous Notes * Telephone Encounter - Nohemy More - 11/18/2024 11:53 AM EDT Tc from pt stering script for Tirzepatide-Weight Management (Zepbound) 2.5 MG/0.5ML solution auto-injector requires PA documented in this encounter Plan of Treatment Upcoming Encounters Date Type Department Care Team (Late st Contact Info) Description 01/07/2025 10:30 AM EDT Office Visit [facility] CH[facility] MED & PEDS [address] [place] [address] Keturah Ramos MD [address] [place] [address] documented as of this encounter Visit Diagnoses Not on filedocumented in this encounter Additional Health Concerns Assessment Noted Time PHQ-9 Depression Total Score: 0 01/06/20 23 10:54 AM EDT documented as of this encounter Care Teams Community Pharmacist Relationship Specialty Start Date End Date Keturah Ramos MD [address] [place] [address] PCP - General Family Medicine 08/07/18 documented as of this encounter
--- OUTSIDE RECORDS SUMMARY | 2024-11-21 16:39 | XMS_ITS | Encounter Summary ---
Author Organization [employer] Address [address] [place] [address] Care Team Providers Care Real Estate Broker Name Role Phone Keturah Ramos MD Primary Care Provider [phone] Reason for Visit * Reason Comments Med Change Request Encounter Details Date Type Department Care Team ([facility] st Contact Info) Description 09/04/2023 Refill [facility] MED & PEDS [address] [place], [place] [phone] Melanie Mchugh MD [address] [place] [address] Impaired glucose tolerance in obese Social History [...] Description 01/07/2025 10:30 AM EDT Office Visit [facility] MED & PEDS [address] [place] [address] Keturah Ramos MD [address] [place] [address] documented as of this encounter Visit Diagnoses Diagnosis Impaired glucose tolerance in obese Other abnormal glucose documented in this encounter Additional Health Concerns Assessment Noted Time PHQ-9 Depression Total Score: 0 01/06/20 23 10:54 AM EDT documented as of this encounter Care Teams Real Estate Broker Relationship Specialty Start Date End Date Keturah Ramos MD [address] [place] [address] PCP - General Family Medicine 08/07/18 documented as of this encounter
--- OUTSIDE RECORDS SUMMARY | 2024-11-21 16:39 | XMS_ITS | Encounter Summary ---
Author Organization [employer] Address [address] [place] [address] 7 [place] [address] Care Team Providers Care Border Patrol Officer Name Role Phone Keturah Ramos MD Primary Care Provider [phone] Reason for Visit * Reason Comments Med Refill Encounter Details Date Type Department Care Team ([facility] Contact Info) Description 04/30/2023 Refill [facility] MED & PEDS [address] [place] [address] Omid Shahid MD [address] [place] [address] Impaired glucose tolerance in obese Social History [...] Upcoming Encounters Date Type Department Care Team ([facility] Contact Info) Description 01/07/2025 10:30 AM EDT Office Visit [facility] MED & PEDS [address] [place] [address] Keturah Ramos MD [address] [place], [place] [phone] documented as of this encounter Visit Diagnoses Diagnosis Impaired glucose tolerance in obese Other abnormal glucose documented in this encounter Additional Health Concerns Assessment Noted Time PHQ-9 Depression Total Score: 0 01/06/20 23 10:54 AM EDT documented as of this encounter Care Teams Border Patrol Officer Relationship Specialty Start Date End Date Keturah Ramos MD [address] [place] [address] PCP - General Family Medicine 08/07/18 documented as of this encounter
--- OUTSIDE RECORDS SUMMARY | 2024-11-21 16:39 | XMS_ITS | Encounter Summary ---
Author Organization [employer] Address [address] 7[address] [place] [address] Care Team Providers Care Blocker And Sewer Name Role Phone Keturah Ramos MD Primary Care Provider [phone] Reason for Visit * Reason Onset Date Comments Med Refill 10/09/2024 Encounter Details Date Type Department Care Team ([facility] Contact Info) Description 10/09/2024 Telephone [facility] [address] [place] [address] Keturah Ramos MD [address] [place] [address] Med Refill Social History Tobacco Use Types Packs/Day Years [...] encounter Miscellaneous Notes * Telephone Encounter - Kvng Camacho - 10/09/2024 3:17 PM EST TC from pt requesting medication refill. Medications needing refill : oxyCODONE HCl 10 MG tablet To be sent to: [facility]/pharmacy #[id number] - [place] - [address] [place] [address] documented in this encounter Plan of Treatment Upcoming Encounters Date Type Department Care Team (Late st Contact Info) Description 01/07/2025 10:30 AM EDT Office Visit [facility] MED & PEDS [address] [place] [address] Keturah Ramos MD [address] [place] [address] documented as of this encounter Visit Diagnoses Not on filedocumented in this encounter Additional Health Concerns Assessment Noted Time PHQ-9 Depression Total Score: 0 01/06/20 23 10:54 AM EDT documented as of this encounter Care Teams Blocker And Sewer Relationship Specialty Start Date End Date Keturah Ramos MD [address] [place] [address] PCP - General Family Medicine 08/07/18 documented as of this encounter
--- OUTSIDE RECORDS SUMMARY | 2024-11-21 16:39 | XMS_ITS | Clinical Summary ---
Author Organization [facility] Address [address] [place] [address] Phone Care Team Providers Care Pbx Repairer Name Role Phone Keturah Ramos MD Primary Care Provider [phone] Allergies Active Allergy Reactions Criticality Noted Date Comments Cephalexin Monohydrate 06/15/2017 KEFLEX (CEPHALEXIN MONOHYDRATE-POLYSORBATE 80) Medications ipratropium/albu terol sulfate (IPRATROPIUM-ALB UTEROL INHL) ALBUTEROL-IPRAT ROPIUM 18-103 MCG/ACT AEROSOL Inhale into the lungs. Active amLODIPine (NORVASC) 10 mg tablet Take 10 mg by mouth daily. Active albuterol sulfate (ProAir RespiClick) 90 mcg/actuation aerosol powdr breath activated Inhale into the lungs. Active umeclidinium-saritha anteroL (Anoro Ellipta) 62.5-25 mcg/actuation inhaler INHALE 1 PUFF INTO THE LUNGS EVERY DAY 9 Active aspirin 325 mg tablet Take 325 mg by mouth daily. Active chlorthalidone (HYGROTON) 25 mg tablet Take 25 mg by mouth daily. Active fluticasone HFA (FLOVENT HFA) 220 mcg/actuation inhaler Inhale 1 Puff into the lungs 2 times daily. Active fluticasone propionate (FLONASE) 50 mcg/actuation nasal spray 2 Sprays by Each Nare route daily. Active ipratropium-albu teroL (COMBIVENT RESPIMAT) 20-100 mcg/actuation inhaler Inhale 1 Puff into the lungs 4 times daily. Active melatonin 3 mg tablet Take 1 Tab by mouth daily. Active mesalamine (CANASA) 1,[address] 1,000 mg rectally 2 times daily. Active metoprolol succinate (TOPROL-XL) 100 mg 24 hr tablet Take 100 mg by mouth daily. Active umeclidinium-saritha anteroL (ANORO ELLIPTA) 62.5-25 mcg/actuation inhaler Inhale into the lungs. Active gabapentin (NEURONTIN) 300 mg capsule Take 1 capsule (300 mg total) by mouth. Active dabigatran etexilate (PRADAXA) 150 mg capsule Take by mouth. Activ e cetirizine (ZyrTEC) 10 mg tablet Take 1 tablet (10 mg total) by mouth 1 (one) time each day in the morning. 9 Active roflumilast (DALIRESP) 500 mcg tablet Take 1 tablet (500 mcg total) by mouth 1 (one) time each day. Active oxyCODONE 10 mg tablet, oral only Take 10 mg by mouth every 12 hours. Max Daily Amount: 20 mg 4 Active Arnuity Ellipta 100 mcg/actuation blister with device inhaler TAKE 1 PUFF INHALED DAILY Active clotrimazole (LOTRIMIN) 1 % cream Apply 1 Application topically 2 (two) times a day. APPLY TO AFFECTED AREA Active allopurinoL (ZYLOPRIM) 300 mg tablet Take 1 tablet (300 mg total) by mouth 1 (one) time each day. Active Active Problems Problem Noted Date Diagnosed Date Morbid obesity with BMI of 6 0.0-69.9, adult ([facility] V24, [facility] V28) 06/04/2024 Allergic rhinitis 09/01/2017 HTN (hypertension) 09/01/2017 Supplemental oxygen dependent 09/01/2017 JAMIE on CPAP 06/15/2017 Simple chronic bronchitis ([facility] V24, [facility] V28) 06/15/2017 Encounters Date Type Department Care Team Description 10/22/2024 1:30 PM EDT Office Visit Orthopedic Surgery - [address] [address] Ty James, DPM Ingrowing nail (Primary Dx); Dermatophytosis of nail from Last 3 Months Immunizations Name Administration Dates Next Due Pneumococcal polysaccharide 23 valent (Pneumovax 23) 2yo and older 01/15/2019 Medical History Medical History Date Comments Allergic rhinitis 09/01/2017 DX:Allergic rh initis HTN (hypertension) 09/01/2017 DX:HTN (hyper tension) Morbid obesity with BMI of 6 0.0-69.9, adult ([facility] V24, [facility] V28) 06/15/2017 DX:Morbid obesity wit h BMI of 60.0-69.9, adult ([facility]) JAMIE on CPAP 06/15/2017 DX:JAMIE on CPAP Simple chronic bronchitis ([facility] V24, [facility] V28) 06/15/2017 DX:Simple chronic bronchitis (HCC) Supplemental oxygen dependent 09/01/2017 DX :Supplemental oxygen dependent Social History Tobacco Use Types Packs/Day Years Used Date Smoking Tobacco: Former Cigarettes Smokeless Tobacco: Never Sex and Gender Information Value Date Recorded Sex Assigned at Not on file Legal Sex Male 6:09 PM EST Gender Identity Not on file Sexual Orientation Not on file Obstetrics History Last Filed Vital Signs Vital Sign Reading Time Taken Comments Blood Pressure - - Pulse - - Temperature - - Respiratory Rate - - Oxygen Saturation - - Inhaled Oxygen Concentration - - Weight 146 kg (321 lb) 10/22/2024 1:12 PM EDT Height 170.2 cm (5' 7.01 ) 10/22/2024 1:12 PM ED T Body Mass Index 50.26 10/22/2024 1:12 PM EDT Plan of Treatment Upcoming Encounters Date Type Department Care Team (Late st Contact Info) Description 12/24/2024 1:30 PM EDT Office Visit Orth[facility] - [place] [address] [phone] Ty James, DPVel [address] [address] Health Maintenance Due Date Last Done Comments Pneumococcal Vaccine: 50+ Years (2 of 2 - PCV) 01/16/2020 01/15/2019 Colorectal Cancer Screening: Colonoscopy 05/31/2024 Depression Screening 05/31/2024 01/05/2023 Falls Risk Assessment 05/31/2024 Hepatitis C Screening 05/31/2024 Medicare Annual Wellness Visit 05/31/2024 Social Influencers of Health Screening 05/31/2024 Hypertension/CHF/CAD Annual BMP Blood Test 05/01/2025 05/01/2024 DTaP,Tdap,and Td Vaccines (2 - Td or Tdap) 10/26/2025 10/27/2015 Cholesterol Screening (Lipid Panel) 05/01/2029 05/01/2024 Zoster Vaccines Completed 10/18/2018, 08/07, 10/27/2015 COVID-19 Vaccine Completed 05/01/2024, 07/2023, 06/10/2021, Additional history exists Influenza Vaccine Completed 05/01/2024, , 07/13/2022, Additional history exists RSV Immunization Adult Patients Completed 07/25/2024 HIB Vaccines Aged Out No longer eligi ble based on patient's age to complete this topic HPV Vaccines Aged Out No longer eligi ble based on patient's age to complete this topic Hepatitis A Vaccines Aged Out No long er eligible based on patient's age to complete this topic Hepatitis B Vaccines Aged Out No long er eligible based on patient's age to complete this topic IPV Vaccines Aged Out No longer eligi ble based on patient's age to complete this topic MMR Vaccines Aged Out No longer eligi ble based on patient's age to complete this topic Meningococcal ACWY Vaccine Aged Out N o longer eligible based on patient's age to complete this topic Meningococcal B Vaccine Aged Out No l onger eligible based on patient's age to complete this topic RSV Immunization Patients Under 20 months Aged Out No longer eligible based on patient's age to complete this topic Varicella Vaccines Aged Out No longer eligible based on patient's age to complete this topic Insurance MEDICARE MEDICAID - [place] Care Teams Pbx Repairer Relationship Specialty Start Date End Date Keturah Ramos MD [address] [place] [phone] PCP - General 06/15/17
--- OUTSIDE RECORDS SUMMARY | 2024-11-21 16:39 | XMS_ITS | Encounter Summary ---
Author Organization [employer] Address [address] [place] [address] Care Team Providers Care Grain Unloader Name Role Phone Keturah Ramos MD Primary Care Provider [phone] Reason for Visit * Reason Comments Med Change Request Encounter Details Date Type Department Care Team ([facility] Contact Info) Description 08/12/2024 Refill [facility] PEDS [address] [place] [address] Keturah Ramos MD [address] [place] [address] Impaired glucose tolerance in obese Social History [...] Description 01/07/2025 10:30 AM EDT Office Visit [facility] MED & PEDS [address] [place] [address] Keturah Ramos MD [address] [place] [address] documented as of this encounter Visit Diagnoses Diagnosis Impaired glucose tolerance in obese Other abnormal glucose documented in this encounter Additional Health Concerns Assessment Noted Time PHQ-9 Depression Total Score: 0 01/06/20 23 10:54 AM EDT documented as of this encounter Care Teams Grain Unloader Relationship Specialty Start Date End Date Keturah Ramos MD [address] [place] [address] PCP - General Family Medicine 08/07/18 documented as of this encounter
--- OUTSIDE RECORDS SUMMARY | 2024-11-21 16:39 | XMS_ITS | Encounter Summary ---
Author Organization [employer] Address [address] [place] [address] Care Team Providers Care Digital Marketing Executive Name Role Phone Keturah Ramos MD Primary Care Provider Reason for Visit * Reason Comments Med Change Request Encounter Details Date Type Department Care Team ([facility] Contact Info) Description 11/06/2024 Refill [facility] MED & PEDS [address] [place] [address] Keturah Ramos MD [address] [place] [address] Impaired glucose tolerance in obese; Morbid (severe) obesity with alveolar hypoventilation (CMS/HCC); Obstructive sleep apnea of adult; Controlled atrial fibrillation (CMS/HCC) Social History Tobacco Use Types Packs/Day Years [...] Description 01/07/2025 10:30 AM EDT Office Visit [facility] MED & PEDS [address] [place] [address] Keturah Ramos MD [address] [place] [address] documented as of this encounter Visit Diagnoses Diagnosis Impaired glucose tolerance in obese Other abnormal glucose 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
--- OUTSIDE RECORDS SUMMARY | 2024-11-21 16:39 | XMS_ITS | Encounter Summary ---
Author Organization [employer] Address [address] [place] [address] Care Team Providers Care Caustic Purification Operator Name Role Phone Keturah Ramos MD Primary Care Provider Reason for Visit * Reason Onset Date Comments Med Refill 10/09/2024 Encounter Details Date Type Department Care Team ([facility] Contact Info) Description 10/09/2024 Telephone [facility] MEDICINE [address] [place] [address] Keturah Ramos MD [address] [facility] [place] [address] Med Refill Social History Tobacco Use Types [...] encounter Miscellaneous Notes * Telephone Encounter - Mila Hunter LPN - 10/09/2024 3:25 PM EST Medication was sent to [facility] #[id number] on 08/30/24 with 1 refill. * Telephone Encounter - Kvng Camacho - 10/09/2024 3:21 PM EST TC from pt requesting medication refill. Medications needing refill : nystatin (Mycostatin) cream To be sent to: [facility]/pharmacy #[id number] - [place], [place] - [address] [place] [address] documented in this encounter Plan of Treatment Upcoming Encounters Date Type Department Care Team (Late st Contact Info) Description 01/07/2025 10:30 AM EDT Office Visit [facility] MED & PEDS [address] [place] [address] Keturah Ramos MD [address] [place] [address] documented as of this encounter Visit Diagnoses Not on filedocumented in this encounter Additional Health Concerns Assessment Noted Time PHQ-9 Depression Total Score: 0 01/06/20 23 10:54 AM EDT documented as of this encounter Care Teams Caustic Purification Operator Relationship Specialty Start Date End Date Keturah Ramos MD [address] [place] [address] PCP - General Family Medicine 08/07/18 documented as of this encounter
--- OUTSIDE RECORDS SUMMARY | 2024-11-21 16:39 | XMS_ITS | Encounter Summary ---
Author Organization [employer] Address [address] [place] [address] 7[address] [place] [address] Care Team Providers Care Primary Mill Roller Name Role Phone Keturah Ramos MD Primary Care Provider Reason for Visit * Reason Comments Med Refill Encounter Details Date Type Department Care Team ([facility] Contact Info) Description 09/02/[address] [facility] MED & PEDS [address] [place] [address] Keturah Ramos MD [address] [place] [address] Impaired glucose tolerance in obese Social History Tobacco Use Types Packs/Day Years Used Date Smoking Tobacco: Never Assessed Sex and Gender Information Value Date Recorded Sex Assigned at Male 06/06/2022 10:17 AM EDT Legal Sex Male 10:17 AM EDT Gender Identity Male 06/06/2022 10:17 AM EDT Sexual Orientation Straight 06/06/2022 10 :17 AM EDT documented as of this encounter Plan of Treatment Upcoming Encounters Date Type Department Care Team ([facility] Contact Info) Description 01/07/2025 10:30 AM EDT Office Visit [facility] MED & PEDS [address] [place] [address] Keturah Ramos MD [address] [place] [address] documented as of this encounter Visit Diagnoses Diagnosis Impaired glucose tolerance in obese Other abnormal glucose documented in this encounter Care Teams Primary Mill Roller Relationship Specialty Start Date End Date Keturah Ramos MD [address] [place] [address] PCP - General Family Medicine 08/07/18 documented as of this encounter
--- OUTSIDE RECORDS SUMMARY | 2024-11-21 16:39 | XMS_ITS | Encounter Summary ---
Author Organization [employer] Address [address] [facility] 7 [place] [address] Care Team Providers Care Er Manager Name Role Phone Keturah Ramos MD Primary Care Provider [phone] Reason for Visit * Reason Onset Date Comments Referral 08/22/2023 Encounter Details Date Type Department Care Team ([facility] Contact Info) Description 08/22/2023 Telephone [facility] MED & PEDS [address] [place] [address] Keturah Ramos MD [address] [place] [address] Referral Social History Tobacco Use Types Packs/Day Years [...] encounter Miscellaneous Notes * Telephone Encounter - Shelley Avalos RN - 08/22/2023 12:01 PM EST Returned call to pt regarding message below. Pt states feeling like he has something in his R eye and c/o blurry vision for one week. Pt requesting eye care referral but was advised that there is a wait list for eye care. Pt denies any pain, swelling or rednees to the R eye but states it feels weird and vision is affected. Pt advised on need to be seen and PCP can place referral if needed and can assess if urgent referral is needed as well. Pt agrees to appt with PCP on 08/24/23 * Telephone Encounter - Shayna Marquez - 08/22/2023 11:15 AM EST TC from pt requesting a referral for the vision center at the [facility] . documented in this encounter Plan of Treatment Upcoming Encounters Date Type Department Care Team (Late st Contact Info) Description 01/07/2025 10:30 AM EDT Office Visit [facility] CHC MED & PEDS [address] [place] [address] Keturah Ramos MD [address] [place] [address] documented as of this encounter Visit Diagnoses Not on filedocumented in this encounter Additional Health Concerns Assessment Noted Time PHQ-9 Depression Total Score: 0 01/06/20 23 10:54 AM EDT documented as of this encounter Care Teams Er Manager Relationship Specialty Start Date End Date Keturah Ramos MD [address] [place] [address] PCP - General Family Medicine 08/07/18 documented as of this encounter
--- OUTSIDE RECORDS SUMMARY | 2024-11-21 16:39 | XMS_ITS | Encounter Summary ---
Author Organization [employer] Address [address] 7[address] [place] [address] Care Team Providers Care Transportation Sales Consultant Name Role Phone Keturah Ramos MD Primary Care Provider [phone] Reason for Visit * Reason Comments Med Change Request Encounter Details Date Type Department Care Team ([facility] st Contact Info) Description 09/11/2023 Refill [facility] CHC MED & PEDS [address] [place], [place] [id number] Melanie Mchugh MD [address] [place] [address] Impaired glucose tolerance in obese Social History [...] Description 01/07/2025 10:30 AM EDT Office Visit [facility] MED & PEDS [address] [place] [address] Keturah Ramos MD 505 [place] [address] documented as of this encounter Visit Diagnoses Diagnosis Impaired glucose tolerance in obese Other abnormal glucose documented in this encounter Additional Health Concerns Assessment Noted Time PHQ-9 Depression Total Score: 0 01/06/20 23 10:54 AM EDT documented as of this encounter Care Teams Transportation Sales Consultant Relationship Specialty Start Date End Date Keturah Ramos MD [address] [place] [address] PCP - General Family Medicine 08/07/18 documented as of this encounter
--- OUTSIDE RECORDS SUMMARY | 2024-11-21 16:39 | XMS_ITS | Encounter Summary ---
Author Organization [employer] Address [address] 7[address] [place] [address] Care Team Providers Care Mold Yard Worker Name Role Phone Keturah Ramos MD Primary Care Provider Reason for Visit * Reason Comments Med Refill Encounter Details Date Type Department Care Team ([facility] Contact Info) Description 01/14/2024 [facility]ill [facility]ED[facility] [address] [place] [address] Keturah Ramos MD [address] [place] [address] Social History Tobacco Use Types Packs/Day Years [...] 01/07/2025 10:30 AM EDT Office Visit [facility] MED [facility]EDS [address] [place] [address] Keturah Ramos MD [address] [place] [address] documented as of this encounter Visit Diagnoses Not on filedocumented in this encounter Additional Health Concerns Assessment Noted Time PHQ-9 Depression Total Score: 0 01/06/20 23 10:54 AM EDT documented as of this encounter Care Teams Mold Yard Worker Relationship Specialty Start Date End Date Keturah Ramos MD [address] [place] [address] PCP - General Family Medicine 08/07/18 documented as of this encounter
--- OUTSIDE RECORDS SUMMARY | 2024-11-21 16:39 | XMS_ITS | Encounter Summary ---
Author Organization [employer] Address [address] [facility] [address] [facility] [address] [facility] [address] [place] [address] Care Team Providers Care Belt Puncher Name Role Phone Keturah Ramos MD Primary Care Provider [phone] Reason for Visit * Reason Comments Med Change Request Encounter Details Date Type Department Care Team ([facility] Contact Info) Description 08/07/2023 Refill [facility] CHC MED & PEDS [address] [place] [address] Keturah Ramos MD [address] [place] [address] Mild chronic obstructive pulmonary disease (CMS/HCC) Social History Tobacco Use Types Packs/Day [...] the past 12 months, has t he [employer], gas, oil or water company threatened to [...] 10:30 AM EDT Office Visit [facility] MED & PEDS [address] [place] [address] Keturah Ramos MD [address] [place] [address] documented as of this encounter Visit Diagnoses Diagnosis Mild chronic obstructive pulmonary disease (CMS/HCC) Chronic airway obstruction, not elsewhere classified documented in this encounter Additional Health Concerns Assessment Noted Time PHQ-9 Depression Total Score: 0 01/06/20 23 10:54 AM EDT documented as of this encounter Care Teams Belt Puncher Relationship Specialty Start Date End Date Ketuarh Ramos MD [address] [place] [address] PCP - General Family Medicine 08/07/18 documented as of this encounter
--- OUTSIDE RECORDS SUMMARY | 2024-11-21 16:39 | XMS_ITS | Encounter Summary ---
Author Organization [employer] Address [address] 7[address] [place] [address] Care Team Providers Care Juvenile Detention Officer Name Role Phone Keturah Ramos MD Primary Care Provider [phone] Reason for Visit * Reason Comments Med Change Request Encounter Details Date Type Department Care Team ([facility] Contact Info) Description 08/30/2024 Refill [facility] CHC MED & PEDS [address] [place] [address] Keturah Ramos MD [address] [place] [address] Impaired glucose tolerance in obese Social History [...] [facility] MED & PEDS [address] [place] [address] Keturah Ramos MD [address] [place] [address] documented as of this encounter Visit Diagnoses Diagnosis Impaired glucose tolerance in obese Other abnormal glucose documented in this encounter Additional Health Concerns Assessment Noted Time PHQ-9 Depression Total Score: 0 01/06/20 23 10:54 AM EDT documented as of this encounter Care Teams Juvenile Detention Officer Relationship Specialty Start Date End Date Keturah Ramos MD [address] [place] [address] PCP - General Family Medicine 08/07/18 documented as of this encounter
--- OUTSIDE RECORDS SUMMARY | 2024-11-21 16:39 | XMS_ITS | Clinical Summary ---
Author Organization [employer] Address [address] [place] [address] Care Team Providers Care Apprentice Painter Brush Name Role Phone Keturah Ramos MD Primary Care Provider [phone] Allergies Active Allergy Reactions Criticality Noted Date Comments Banana 01/05/2023 Medications Roflumilast (Daliresp) 500 MCG tablet Take 1 tablet by mouth 1 (one) time each day. Active Umeclidinium-Vilant jeanie (Anoro Ellipta) 62.5-25 MCG/ACT aerosol powder Inhale 1 puff 1 (one) time each day. inhale 1 puff by inhalation route every day at the same time each day Active Arnuity Ellipta 100 MCG/ACT inhaler Inhale 1 puff in the morning. 08/24/19 24 Active melatonin 5 MG tabletIndications:O bstructive sleep apnea of adult TAKE 1 TABLET BY MOUTH EVERYDAY AT BEDTIME 90 tablet 3 01/02/20 24 Active chlorthalidone (Hygroton) 25 MG tablet TAKE 1 TABLET BY MOUTH EVERY DAY 90 tablet 3 02/09/20 24 Active metoprolol succinate XL (Toprol-XL) 100 MG 24 hr tablet TAKE 1 TABLET BY MOUTH EVERY DAY 90 tablet 3 02/20/20 24 Active allopurinol (Zyloprim) 300 MG tablet TAKE 1 TABLET BY MOUTH EVERY DAY 90 tablet 3 02/20/20 24 Active amLODIPine (Norvasc) 10 MG tablet TAKE 1 TABLET BY MOUTH EVERY DAY 90 tablet 2 02/20/20 24 Active gabapentin (Neurontin) 300 MG capsule TAKE 1 CAPSULE BY MOUTH THREE TIMES A DAY 90 capsule 5 05/31/20 24 Active cetirizine (ZyrTEC) 10 MG tabletIndications:O bstructive sleep apnea of adult TAKE 1 TABLET BY MOUTH EVERY MORNING 90 tablet 3 07/15/20 24 Active fluticasone (Flonase) 50 MCG/ACT nasal sprayIndications:Ob structive sleep apnea of adult USE 2 SPRAYS IN EACH NOSTRIL NEEDED 48 mL 3 07/15/20 24 Active Combivent Respimat 20-100 MCG/ACT inhalerIndications: Mild chronic obstructive pulmonary disease (CMS/HCC) INHALE 1 PUFF BY MOUTH 4 TIMES A DAY NOT TO EXCEED 6 PUFFS IN 24 HRS 4 g 3 07/29/20 24 Active nystatin (Mycostatin) creamIndications:Im paired glucose tolerance in obese APPLY TO AFFECTED AREA TWICE A DAY 540 g 1 08/30/19 25 Active oxyCODONE HCl 10 MG tabletIndications:A cute bilateral low back pain without sciatica Take 10 mg by mouth every 12 (twelve) hours. 30 tablet 10/11/19 25 Active clotrimazole (Lotrimin) 1 % cream APPLY TO AFFECTED AREA TWICE A DAY 30 g 11 10/11/19 25 Active oxyCODONE (Roxicodone) 10 MG immediate release tabletIndications:A cute bilateral low back pain without sciatica Take 1 tablet (10 mg) by mouth every 12 (twelve) hours if needed for severe pain. 30 tablet 10/18/19 25 Active Tirzepatide-Weight Management (Zepbound) 2.5 MG/0.5ML solution auto-injectorIndica tions:Impaired glucose tolerance in obese,Morbid (severe) obesity with alveolar hypoventilation (CMS/HCC),Obstructi ve sleep apnea of adult,Controlled atrial fibrillation (CMS/HCC) Inject 0.5 mL (2.5 mg) under the skin 1 (one) time per week. 2 mL 1 11/07/19 25 Active Active Problems Problem Noted Date Diagnosed Date Severe obesity 07/13/2022 Impaired glucose tolerance in obese 05/17/2013 Elevated fasting blood sugar 05/17/2013 Hearing loss 06/22/2012 Controlled atrial fibrillation 06/22/2012 Obstructive sleep apnea of adult 01/12/2012 Obesity 01/12/2012 Mild chronic obstructive pulmonary disease 01/11 Hypertension 01/12/2012 Hemorrhoids 01/12/2012 Encounters Date Type Department Care Team Description 11/18/2024 Telephone [facility] MED & PEDS [address] [place] [address] Keturah Ramos MD Prior Authorization 11/06/2024 9:30 AM EDT Office Visit [facility] CHC MED & PEDS [address] [place] [address] Keturah Ramos MD Impaired glucose tolerance in obese (Primary Dx); Dietary counseling; Exercise counseling; Morbid (severe) obesity with alveolar hypoventilation (CMS/HCC); Obstructive sleep apnea of adult; Controlled atrial fibrillation (CMS/HCC) 11/06/2024 Refill [facility] CHC MED & PEDS [address] [place] [address] Keturah Ramos MD Impaired glucose tolerance in obese; Morbid (severe) obesity with alveolar hypoventilation (CMS/HCC); Obstructive sleep apnea of adult; Controlled atrial fibrillation (CMS/HCC) 11/06/2024 Travel 11/04/2024 Telephone [facility] MED & PEDS [address] [place] [address] Keturah Ramos MD Chart Prep 10/18/2024 Population Health Risk Score [facility] () Department [address] [place] [id number] Provider, Population Health Generic 10/16/2024 Refill [facility] MED & PEDS [address] [place] [address] Katie Garcia RN Acute bilateral low back pain without sciatica (Primary Dx) 10/15/2024 Telephone [facility] MED & PEDS [address] [place] [address] Keturah Ramos MD Med Refill 2024 10:30 AM EDT Office Visit [facility] OPTOMETRY [address] [place] [address] ReidClaudia hills, OD Presbyopia (Primary Dx) 10/10/2024 Refill [facility] MED & PEDS [address] [place] [address] Keturah Ramos MD 10/09/2024 Refill [facility] MED & PEDS [address] [place] [address] Katie Garcia RN Acute bilateral low back pain without sciatica 10/09/2024 Telephone [facility] MEDICINE [address] [place] [address] Keturah Ramos MD Med Refill 10/09/2024 Telephone [facility] MEDICINE [address] [place] [address] Keturah Ramos MD Med Refill 09/02/2024 2:00 PM EST Office Visit [facility] OPTOMETRY [address] [place] [address] Reid, Claudia, OD Chorioretinal scar of right eye (Primary Dx); PVD (posterior vitreous detachment), right eye; Pseudophakia of both eyes; Presbyopia 09/02/2024 Travel 08/30/2024 Refill [facility]C MED & PEDS [address] [place] [address] Keturah Ramos MD Impaired glucose tolerance in obese 08/30/2024 Refill [facility] MED & PEDS [address] [place] [address] Keturah Ramos MD Impaired glucose tolerance in obese 08/26/2024 Travel from Last 3 Months Immunizations Name Administration Dates Next Due Influenza High-dose Quadriva lent Preservative Free 05/18/2023,06/10/2021 Influenza injectable quadriv alent IIV4 with preservative 04/30/2019,05/22/2018,05/30/2017,05/25,04/21/2015 Influenza injectable quadriv alent preservative free 05/21/2020 Influenza, High Dose Seasona l, Preservative Free 05/01/2024,07/13/2022 Influenza, IIV3, injectable 05/21/2014 Influenza, Split (incl. alyson fied surface antigen) 05/17/2013,04/02/2012 Tayla SARS-CoV-2 Vaccination 10/21/2020 Pfizer Covid-19 Vaccine 12+ 05/01/2024,,06/10/2021 Pneumococcal Polysaccharide PPSV23 01/15/2019 RSV Bivalent 07/25/2024 Tdap 10/27/2015 Zoster, Recombinant 10/18/2018,08/23/2018 Zoster, live 10/27/2015 Family History Medical History Relation Name Comments Hypertension Father Lung cancer Mother Breast cancer Sister Relation Name Status Comments Father Mother Sister Social History Tobacco Use Types Packs/Day Years Used Date Smoking Tobacco: Never Passive Smoke Exposure: Never Smokeless Tobacco: Never Tobacco Cessation:Counseling Given: Not Answered Depression Answer Date Recorded Patient Health Questionnaire-9 [...] Orientation Straight 06/06/2022 10 :17 AM EDT Last Filed Vital Signs Vital Sign Reading Time Taken Comments Blood Pressure 122/70 11/06/2024 9:39 AM EDT Pulse 72 11/06/2024 9:39 AM EDT Temperature 36.1 ??C (97 ??F) 11/06/2024 9:39 AM EDT Respiratory Rate 20 11/06/2024 9:39 AM EDT Oxygen Saturation 94% 07/25/2024 1:13 PM EST Inhaled Oxygen Concentration - - Weight 150 kg (331 lb) 11/06/2024 9:39 AM EDT Height 170.2 cm (5' 7 ) 11/06/2024 9:39 AM EDT Body Mass Index 51.84 11/06/2024 9:39 AM EDT Plan of Treatment Upcoming Encounters Date Type Department Care Team ([facility] st Contact Info) Description 01/07/2025 10:30 AM EDT Office Visit [facility] MED & PEDS [address] [place] [address] Keturah Ramos MD [address] [place] [address] Health Maintenance Due Date Last Done Comments CT Colonography 1955 Colonoscopy 1955 Colorectal Cancer Screening 1955 FIT DNA/Cologuard 1955 FIT 1955 FOBT 1955 Sigmoidoscopy 1955 Hepatitis C Screening 10/13/1973 Pneumococcal Vaccine: 50+ Years (2 of 2 - PCV) 01/16/2020 01/15/2019 Depression Screening 01/06/2024 01/05/2023, 01/06/20 23 DTaP/Tdap/Td Vaccines (2 - Td or Tdap) 10/26/2025 10/27/2015 Alcohol/Substance Use Screening 11/06/2025 11/06/2024 Diabetes: Hemoglobin A1C 11/06/2025 025, 07/25/2024, 11/21/2023, Additional history exists SDOH Screening 11/06/2025 11/06/2024 Tobacco Screening 11/06/2025 11/06/2024 Lipid Panel 05/01/2029 05/01/2024, 06/0 08/2022, 06/10/2021, Additional history exists Zoster Vaccines Completed 10/18/2018, 08/07, 10/27/2015 COVID-19 Vaccine Completed 05/01/2024, 07/2023, 06/10/2021, Additional history exists Influenza Vaccine Completed 05/01/2024, , 07/13/2022, Additional history exists RSV Patients and Patients Aged 60 years or older Completed 07/25/2024 HIB Vaccines Aged Out No [...] patient's age to complete this topic Meningococcal Vaccine Aged Out No sunita shantelle eligible based on patient's age to complete this topic RSV under 20 months Aged Out No longe r eligible based on patient's age to complete this topic Rotavirus Vaccines Aged Out No longer eligible based on patient's age to complete this topic Procedures Procedure Name Priority Date/Time Associated Diagnosis Comments POCT GLYCATED HEMOGLOBIN, TOTAL Routine 11/06/2024 10:14 AM EDT Impaired glucose tolerance in obese POCT GLUCOSE Routine 11/06/2024 10:13 AM EDT Impaired glucose tolerance in obese LIPID PANEL, STANDARD Routine 05/01/2024 11:34 AM EDT Elevated fasting blood sugar Polyuria Morbid (severe) obesity with alveolar hypoventilation (CMS/HCC) from Last 3 Months or Most Recently Relevant to Health Maintenance Results * (ABNORMAL) POCT HGB A1C (11/06/2024 10:14 AM EDT) Hemoglobin A1C 6.2(A) 4.0 - 6.0 % QC Media Lot # [id number] Lot# Expiration Date ,926 Blood 11/06/2024 10:1 4 AM EDT Keturah Ramos MD POINT OF CARE TEST ENTER/EDIT ORDERABLES Final Result * POCT Glucose (11/06/2024 10:13 AM EDT) Glucose Blood, POC 120 60 - 200 mg/dL QC Media Lot # [id number] Lot# Expiration Date Blood Capillary blood specimen / Unknown 11/06/2024 10:13 AM EDT Keturah Ramos MD POINT OF CARE TEST ENTER/EDIT ORDERABLES Final Result * (ABNORMAL) Lipid Panel, Standard (05/01/2024 11:34 AM EDT) Triglycerides 106 <150 mg/dL [facility] Comment:Desirable Triglyceri de: less than 150 mg/dLBorderline High Triglyceride 150-199 mg/dLHigh Triglyceride: 200-499 mg/dLVery High Triglyceride: greater than or equal to 5OO mg/dL Cholesterol 160 <200 mg/dL [facility] Comment:Desirable Cholestero l: less than 200 mg/dLBorderline High Cholesterol: 200-239 mg/dLHigh Cholesterol: greater than 239 mg/dL LDL Cholesterol Calculated 99 <100 mg/dL [facility] Comment:Desirable LDL: less than 100 mg/dLNear Optimal/Above Optimal LDL: 110- 129 mg/dLBorderline High LDL: 130-159 mg/dLHigh LDL: 160-189 mg/dLVery High LDL: greater than or equal to 190 mg/dL HDL Cholesterol 40(L) >40 mg/dL [facility] Comment:Desirable HDL: great er than 40 mg/dL Note: This HDL assay may give artificially low results in patients with liver disease. Blood Venous blood specimen / Unknown 05/01/2024 11:34 AM EDT 05/01/2024 3:03 PM EDT us Keturah Ramos MD LAB BLOOD ORDERABLES Final Re sult [facility] [address] [place] [phone] from Last 3 Months or Most Recently Relevant to Health Maintenance Insurance [facility] MEDIC[facility] Care Teams Apprentice Painter Brush Relationship Specialty Start Date End Date Keturah Ramos MD [address] [place] [address] PCP - General Family Medicine 08/07/18
--- OUTSIDE RECORDS SUMMARY | 2024-11-21 16:39 | XMS_ITS | Encounter Summary ---
Author Organization [employer] Address [address] [place] [address] [address]t [place] [address] Care Team Providers Care Robotics Engineer Name Role Phone Keturah Ramos MD Primary Care Provider [phone] Reason for Visit * Reason Comments Med Change Request Encounter Details Date Type Department Care Team ([facility] Contact Info) Description 08/29/2022 Refill [facility] CHC MED & PEDS [address] [place] [address] Keturah Ramos MD [address] [place] [address] Impaired glucose tolerance in obese Social History [...] Upcoming Encounters Date Type Department Care Team ([facility] Contact Info) Description 01/07/2025 10:30 AM EDT Office Visit [facility] CHC MED & PEDS [address] [place] [address] Keturah Ramos MD [address] [place] [address] documented as of this encounter Visit Diagnoses Diagnosis Impaired glucose tolerance in obese Other abnormal glucose documented in this encounter Care Teams Robotics Engineer Relationship Specialty Start Date End Date Keturah Ramos MD [address] [place] [address] PCP - General Family Medicine 08/07/18 documented as of this encounter
--- OUTSIDE RECORDS SUMMARY | 2024-11-21 16:39 | XMS_ITS | Encounter Summary ---
Author Organization [employer] Address [address] [place] [address] Care Team Providers Care Acrylic Fabricator Name Role Phone Keturah Ramos MD Primary Care Provider [phone] Reason for Visit * Reason Onset Date Comments Med Refill 11/08/2023 Encounter Details Date Type Department Care Team ([facility] Contact Info) Description 11/08/2023 Telephone [facility] [address] [place] [address] Keturah Ramos MD [address] [place] [address] Med Refill Social History Tobacco Use Types [...] * Telephone Encounter - Nohemy More - 11/09/2023 10:07 AM EDT Tc from pt regarding message below. Pt stated insurance does not cover the 7.5mg. Pt is requesting oxyCODONE-acetaminophen (Percocet) 10-325 MG tablet * Telephone Encounter - Emily Mtichell - 11/08/2023 11:14 AM EDT TC from pt requesting medication refill. Medications needing refill : oxyCODONE-acetaminophen (Percocet) 10-325 MG tablet To be sent to: [facility]/pharmacy #[id number] - [place] - [address] [place] [address] documented in this encounter Plan of Treatment Upcoming Encounters Date Type Department Care Team ([facility] st Contact Info) Description 01/07/2025 10:30 AM EDT Office Visit [facility] [address] [place] [address] Keturah Ramos MD [address] [place] [address] documented as of this encounter Visit Diagnoses Not on filedocumented in this encounter Additional Health Concerns Assessment Noted Time PHQ-9 Depression Total Score: 0 01/06/20 23 10:54 AM EDT documented as of this encounter Care Teams Acrylic Fabricator Relationship Specialty Start Date End Date Keturah Ramos MD [address] [place] [address] PCP - General Family Medicine 08/07/18 documented as of this encounter
--- OUTSIDE RECORDS SUMMARY | 2024-11-21 16:39 | XMS_ITS | Encounter Summary ---
Author Organization [employer] Address [address] [place] [address] [address] [place] [address] Care Team Providers Care Verse Writer Name Role Phone Keturah Ramos MD Primary Care Provider [phone] Reason for Visit * Reason Comments Med Change Request Encounter Details Date Type Department Care Team ([facility] Contact Info) Description 08/29/2022 Refill [facility] [address] [place] [address] Keturah Ramos MD [address] [place] [address] Impaired glucose tolerance in obese Social History [...] Upcoming Encounters Date Type Department Care Team ([facility] Contact Info) Description 01/07/2025 10:30 AM EDT Office Visit [facility] [address] [place] [address] Keturah Ramos MD [address] [place] [address] documented as of this encounter Visit Diagnoses Diagnosis Impaired glucose tolerance in obese Other abnormal glucose documented in this encounter Care Teams Verse Writer Relationship Specialty Start Date End Date Keturah Ramos MD [address] [place] [address] PCP - General Family Medicine 08/07/18 documented as of this encounter
--- OUTSIDE RECORDS SUMMARY | 2024-11-21 16:40 | XMS_ITS | Encounter Summary ---
Author Organization [employer] Address [address] [place] [address] [address] [place] [address] Care Team Providers Care Health Psychologist Name Role Phone Keturah Ramos MD Primary Care Provider [phone] Reason for Visit * Reason Comments Med Change Request Encounter Details Date Type Department Care Team ([facility] Contact Info) Description 09/05/2022 Refill [facility] [address] [place] [address] Keturah Ramos MD [address] [place] [address] Impaired glucose tolerance in obese Social History [...] Upcoming Encounters Date Type Department Care Team ([facility] Contact Info) Description 01/07/2025 10:30 AM EDT Office Visit [facility] [address] [place] [address] Keturah Ramos MD [address] [place] [address] documented as of this encounter Visit Diagnoses Diagnosis Impaired glucose tolerance in obese Other abnormal glucose documented in this encounter Care Teams Health Psychologist Relationship Specialty Start Date End Date Keturah Ramos MD [address] [place] [address] PCP - General Family Medicine 08/07/18 documented as of this encounter
--- OUTSIDE RECORDS SUMMARY | 2024-11-21 16:40 | XMS_ITS | Encounter Summary ---
Author Organization [employer] Address [address] [place] [address] Care Team Providers Care Lobsterman Name Role Phone Keturah Ramos MD Primary Care Provider Reason for Visit * Reason Onset Date Comments Med Refill 03/28/2024 Encounter Details Date Type Department Care Team ([facility] Contact Info) Description 03/28/2024 Telephone [facility] [address] [place] [address] Keturah Ramos MD [address] [place] [address] Med Refill Social History Tobacco Use Types [...] encounter Miscellaneous Notes * Telephone Encounter - Eloiseya Hull Dial - 03/28/2024 11:28 AM EDT TC from pt requesting medication refill. Medications needing refill : Oxycodone 10 mg To be sent to: [facility]/pharmacy #[id number] - [place] - [address] [place] [address] Pt is all out . documented in this encounter Plan of Treatment Upcoming Encounters Date Type Department Care Team (Late [facility] Contact Info) Description 01/07/2025 10:30 AM EDT Office Visit [facility] [address] [place] [address] Keturah Ramos MD [address] [place] [address] documented as of this encounter Visit Diagnoses Not on filedocumented in this encounter Additional Health Concerns Assessment Noted Time PHQ-9 Depression Total Score: 0 01/06/20 23 10:54 AM EDT documented as of this encounter Care Teams Lobsterman Relationship Specialty Start Date End Date Keturah Ramos MD [address] [place] [address] PCP - General Family Medicine 08/07/18 documented as of this encounter
== END 2024-11-21 14:05 | disposition home or self-care (01) ==
LOC: HO.HPS 13:36
PROVIDERS: PCP Pediatrics; Visit Provider Hospitalist
DX: J41.8 Mixed simple and mucopurulent chronic bronchitis (principal); G47.33 Obstructive sleep apnea (adult) (pediatric); M79.89 Other specified soft tissue disorders
CPT/HCPCS: 99214; G2211

== ENCOUNTER → 2024-11-21 13:36 | Outpatient (BNVA) | payer MEDICARE, MEDICAID, SELFPAY | PROVIDERS: PCP Pediatrics; Visit Provider Hospitalist | DX: G47.33 Obstructive sleep apnea (adult) (pediatric) (principal); J41.8 Mixed simple and mucopurulent chronic bronchitis; M79.89 Other specified soft tissue disorders | CPT/HCPCS: 99212 ==

== ENCOUNTER 2025-04-09 11:34 | Outpatient (REF) | payer MEDICARE, MEDICAID, SELFPAY ==
[2025-04-09 14:03] LABS: MANUAL DIFF FLAG NO
[2025-04-09 14:07] LABS: Hematocrit 46.1 % (42.0-52.0); Hemoglobin 14.9 g/dl (14.0-18.0); Imm Gran Abs Auto 0.07 X10*3/uL (0.00-0.03); Imm Gran Pct Auto 0.9 % (0.0-0.4); Lymphocytes Absolute Auto 0.8 X10*3/uL (1.2-4.9); Mean Corpuscular HGB Conc 32.3 g/dl (31.0-36.0); Mean Corpuscular Hemoglobin 28.0 pg (27.0-33.0); Mean Corpuscular Volume 86.5 fL (80.0-98.0); NRBC Abs Auto 0.000 X10*3/uL (0.0-0.012); NRBC Pct Auto 0.0 /100WBC (0.0-0.2); Platelet Count 179 X10*3/uL (160-400); Red Blood Count 5.33 X10*6/uL (4.60-5.80); White Blood Count 7.8 X10*3/uL (4.8-10.8)
[2025-04-09 14:20] LABS: Hemoglobin A1C 172.4226 umol/L; Total Hemoglobin (HGBA1C) 3865.6528 umol/L
[2025-04-09 14:39] LABS: Alanine Aminotransferase 20 U/L (0-40); Albumin Level 3.9 g/dL (3.5-5.0); Alkaline Phosphatase 74 U/L (39-117); Anion Gap 11 (12-20); Aspartate Amino Transferase 28 U/L (5-37); Blood Urea Nitrogen 18 mg/dL (9-16); Calcium 9.1 mg/dL (8.4-10.2); Carbon Dioxide 31 mmol/L (22-29); Chloride 103 mmol/L (96-108); Cholesterol 158 mg/dL (<200); Estimated Glomerular Filt Rate > 60; HDL Cholesterol 35 mg/dL (>40); Magnesium 1.8 mg/dL (1.6-2.6); Potassium 3.3 mmol/L (3.3-5.1); Sodium 142 mmol/L (135-145); Total Protein 6.8 g/dL (6.5-8.0); Triglycerides 83 mg/dL (<150)
== END 2025-04-09 11:35 | disposition home or self-care (01) ==
LOC: HO.CHCLDS 11:34
PROVIDERS: Visit Provider Pediatrics
DX: Z12.5 Encounter for screening for malignant neoplasm of prostate (principal); I10 Essential (primary) hypertension; E66.01 Morbid (severe) obesity due to excess calories; G47.33 Obstructive sleep apnea (adult) (pediatric); I48.91 Unspecified atrial fibrillation; R73.02 Impaired glucose tolerance (oral); M54.50 Low back pain, unspecified
CPT/HCPCS: 36415; 80048; 80061; 80076; 83036; 83735; 84153; 84443; 85025

== ENCOUNTER 2025-05-16 13:22 | Outpatient (AMB) | payer MEDICARE, MEDICAID, SELFPAY ==
[2025-05-16 13:26] VITALS: BP 118/64; PULSE 64; O2SAT 94; BMI 54.2
--- NOTE | 2025-05-16 13:26 | MHC.OFFVIS ---
Vital Signs 05/16/25 13:26 Height 5 ft 7 in Weight 346 lb 2.012 oz BMI 54.2 BP 118/64 Blood Pressure Location Lt brachial Position Sitting Pulse 64 Pulse Source Pulse Oximeter Pulse Oximetry (%) 94 Oxygen Delivery Method Room Air Intake Visit Reasons: sleep apnea Gasket Former Required: No Accompanied by: Self / Same As Patient Allergies cephalexin (Keflex) Allergy (Mild, Verified 05/16/25 13:35) rash HPI Comments Details: The patient is a 69-year-old gentleman who has morbid obesity, obstructive sleep apnea, COPD and chronic hypoxic respiratory failure on oxygen. He has been noticing he has been using the oxygen more often. He has been getting more shortness of breath. Moderate severity. He is also getting more lower extremity swelling. Usually in the end of the day he does get significant swelling left leg more than the right. Usually in the morning there better. He has been using the Anoro and also the Flovent. He continues to have the Combivent uses as needed. He is concerned that his respiratory status getting worse. He has been eating out a lot. He also has a lot of frozen dinners. He has been consuming significant amount of salt. In the meantime he continues uses BiPAP. He recently received the new BiPAP from his [employer] company. Has a pressure of 16/12. He has been using it almost 100% of the time. The BiPAP therapy has been affecting beneficial. He continues to use it regularly. He has had multiple exacerbations. We talked about although alternative therapies including Daliresp to improve his respiratory status and decrease exacerbations. He is willing to try it and will insurance decrease the dose to 250 mcg and he can start using it every other day in the meantime. The patient has been using the BiPAP therapy the BiPAP therapy has been affecting beneficial. He is looking to get any mask. I did recommend the F30i mask. I will submitted to his [employer] company,[employer]. The patient continues with his current respiratory regimen. He has had some congestion. He is also upset about wearing mask for he feels that he can breathe with it. We try to explained to the best of the ability that we needed to having with the mask because for the safety of others and himself. We did recommend that if he did not want her a mask that we can reschedule his appointment until the cover 19 infection subsided. He did not want to that. He also describes some chest discomfort pressure sensation the middle the chest. Currently is gone. Usually happens with activity. He does have a chemical sales representative and needs to follow up with them. In the meantime he should have an x-ray. 05/19/2022 the patient is here for a pulmonary follow-up visit. Since we last spoke he developed COVID-19. He recovered well. The pets COVID. Denies any residual symptoms. He continues with respiratory therapy with good effect. Denies any need for prednisone or hospitalizations. He also has oxygen that he uses with activity. He was using more often when her COVID-19. But now is back to his baseline. He also has a CPAP at nighttime. The CPAP therapy continues to be affecting beneficial. He does use it for more than 4 hours a night. Unfortunately he still waiting for the replacement [employer] to machine. Apparently there was an issue with way name with spelled on the application and therefore he had to restart the process. He is using his older CPAP at this time. 01/31/2023 the patient is here for a pulmonary follow-up visit. Overall the patient has been doing well. He has had significant amount of weight loss which is helpful. He continues on the Daliresp 500mcg. He is tolerating it well. He continues on the Anoro and also the fluticasone with good effect. He did undergo pulmonary function studies which we personally reviewed. It appears that he has a moderate to severe degree of COPD. In addition to that she did get the a refurbished CPAP from [employer]. Doing better with the higher pressure, 10 cm. If he feels like he needs additional pressure support he can always call and I can adjusted further. 05/23/2024 the patient is here for a pulmonary follow-up visit. Overall he is doing well. His breathing is improved. He continues with his respiratory medicines with good effect. He has had significant amount of weight loss which is also helping his overall health. The patient did get his new CPAP. The CPAP therapy has been affecting beneficial. His AHI is down 2.5. His average pressure is around 10. Current APAP setting is 10-18 therefore will switch over to 10-16. He does have a comfortable mask. Her continue to use it at this time. He is having issues with weight loss having significant skin irritation in infections during the pannus. He is thinking about having surgery because of the recurrent and frequent infections. 11/21/2024 the patient is here for a pulmonary follow-up visit. He continues to do well continues uses respiratory therapy as prescribed. Denies any exacerbations recently. Has not need any prednisone which is reassuring. He continues uses CPAP every night. CPAP therapy continues to be affecting beneficial. I did download the data and appears that his AHI is even better closer to 1 episode an hour. He does have a face mask that is fullface mask that he tolerates well without any significant air leakage. He will continue with that CPAP at this time. Continue with respiratory therapy. He may be starting a GLP 1 inhibitor for his sleep apnea and obesity specially since his causing comorbidities. He is open to start that soon so he can have some significant weight loss. In the meantime he continue with the Daliresp. 05/16/2025 the patient is here for pulmonary follow-up visit. Overall he is doing well. Recently started Mounjaro GLP 1 inhibitor. Hopefully start seeing weight loss. He continues on the Daliresp and also on his inhalers with good response. He has not required any prednisone or his rescue inhaler which is reassuring. He continues uses CPAP every night. CPAP therapy has been affecting beneficial in AHI is below 1. He does use a fullface mask and does get supplies from [employer]. Will request supplies at this time. No recent x-rays except back in 2019. I did personally reviewed the x-ray demonstrating increased cardiac size. Will plan to repeat the x-ray during the next visit in the spring. If any issues arise prior to the next visit he can always call further recommendations. [facility] Medical History (Updated 11/29/20 @ 22:40 by Berlin Lu MD) JAMIE treated with BiPAP Back pain COPD (chronic obstructive pulmonary disease) Bibasilar crackles Limb swelling Surgical History (Updated 04/25/24 @ 17:48 by MIGUEL Cabrera) History of skin graft Family History Sister History of breast cancer Social History Alcohol intake: never Patient Tobacco Use Status: Former Tobacco user Tobacco use type: Cigarette Years Smoked: 7 years Review of Systems Const Denies chills, Denies fatigue, Denies fever(s), Denies weight gain and Denies weight loss ENT Denies dizziness, Denies lip swelling and Denies tongue swelling Card Denies chest pain, Denies leg edema, Denies lightheadedness, Denies palpitations, Denies dyspnea on exertion, Denies orthopnea and Denies other Resp Denies cough and Denies dyspnea on exertion GI Denies hematochezia and Denies change in stool character Musc Denies abnormal gait, Denies muscle weakness, Denies numbness, Denies radiating pain into limb and Denies tingling Skin/Breast Reports skin swelling and Reports sores Neuro Denies abnormal gait, Denies dizziness, Denies numbness and Denies tingling Psych Denies no additional complaints Endo Denies fatigue and Denies palpitations Jean/Lymph Denies easy bleeding and Denies lymphadenopathy Aller/Immun Denies lip swelling and Denies tongue swelling Physical Exam Vital Signs: Last Vital Signs Pulse 64 05/16/25 13:26 BP 118/64 05/16/25 13:26 Pulse Ox 94 05/16/25 13:26 Oxygen Delivery Method Room Air 05/16/25 13:26 BMI result Body Mass Index 54.2 Const General: alert Neck Neck: Yes normal visual inspection, Yes full ROM and Yes no lymphadenopathy Chest Chest palpation & inspection: normal inspection of the chest Resp Auscultation: diminished lung sounds Cardio Rate: regular rate Rhythm: regular rhythm Heart sounds: S1 normal heart sound present and S2 normal heart sound present GI Palpation (GI): Soft to palpation and nontender Auscultation: normal bowel sounds Skin General skin exam: rashes and/or lesions noted Assessment & Plan Assessment & Plan (1) COPD (chronic obstructive pulmonary disease): Code(s): J44.9 - Chronic obstructive pulmonary disease, unspecified Category: Medical Qualifiers: COPD type: chronic bronchitis Chronic bronchitis type: mixed simple and mucopurulent Qualified Code(s): J41.8 - Mixed simple and mucopurulent chronic bronchitis (2) JAMIE treated with BiPAP: Code(s): G47.33 - Obstructive sleep apnea (adult) (pediatric) Category: Medical (3) Limb swelling: Code(s): M79.89 - Other specified soft tissue disorders Category: Medical Plan Continue respiratory therapy with Anoro, Arnuity and Duoneb continue Daliresp 500mcg started GLP 1 APAP at nighttime with oxygen. pressures: 10-18, F20 F/U 6-12 months Coding Level of Care Code Est Pt Level 4 (08797) Complex EM visit Add On G2211 Diagnoses Mixed simple and mucopurulent chronic bronchitis J41.8 COPD type: chronic bronchitis Chronic bronchitis type: mixed simple and mucopurulent JAMIE treated with BiPAP G47.33 Limb swelling M79.89 Time Spent (min) 16
== END 2025-05-16 13:52 | disposition home or self-care (01) ==
LOC: HO.HPS 13:23
PROVIDERS: PCP Pediatrics; Visit Provider Hospitalist
DX: J41.8 Mixed simple and mucopurulent chronic bronchitis (principal); G47.33 Obstructive sleep apnea (adult) (pediatric); M79.89 Other specified soft tissue disorders
CPT/HCPCS: 99214; G2211

== ENCOUNTER → 2025-05-16 13:22 | Outpatient (BNVA) | payer MEDICARE, MEDICAID, SELFPAY | PROVIDERS: PCP Pediatrics; Visit Provider Hospitalist | DX: J41.8 Mixed simple and mucopurulent chronic bronchitis (principal); G47.33 Obstructive sleep apnea (adult) (pediatric); Z99.89 Dependence on other enabling machines and devices; M79.89 Other specified soft tissue disorders | CPT/HCPCS: 99212 ==